=== PATIENT | male | born 1995 | race Caucasian/White ===

== ENCOUNTER 2020-04-08 14:25 | Inpatient (IN) | payer OTHER ==
--- NOTE | 2020-04-08 14:44 | PDOC ---
Rapid Medical Evaluation Chief Complaint: Substance Abuse Time Seen by Provider: 04/08/20 14:37 Medical Evaluation: Allergies Allergy/AdvReac Type Severity Reaction Status Date / Time No Known Allergies Allergy Verified 04/08/20 14:29 04/08/20 14:39 I have performed a brief in-person evaluation of this patient. The patient presents with a chief complaint of: h/o polysubstance abuse BIBA with complains of chest pains, sweats after smoking 3 bags of crack cocaine this AM and drinking 3 beers. pt report drinking lot Pertinent physical exam findings:. anxious, diaphoretic. heart rapid . lungs CTAB I have ordered the following: labs, IVF, EKG The patient will proceed to the ED for further evaluation. Discharge Disposition - Diagnosis Polysubstance abuse Chest pain Qualifiers: Chest pain type: unspecified Qualified Code(s): R07.9 - Chest pain, unspecified - Discharge Dispostion Condition at time of disposition: Stable - Referrals - Patient Instructions - Post Discharge Activity
--- NOTE | 2020-04-08 15:22 | PDOC ---
History of Present Illness - General Chief Complaint: Substance Abuse Stated Complaint: CHEST PAIN Time Seen by Provider: 04/08/20 14:37 History Source: Patient Exam Limitations: Language Barrier - History of Present Illness Initial Comments: HPI: This is a 23 y/o male with a PMH of uncontrolled HTN, alcoholism, and crack use who presented to the ED because of chest pain this morning. He reports that he was drinking last night and smoking crack (last use reported at 3 a.m.). He woke up this morning with three episodes of nausea and non-bloody, non-bilious vomiting. The patient then went for a walk and had exertional, non-radiating, chest pain along with shortness of breath and diaphoresis. The pain was not relieved by rest. He then drank three beers because he was "detoxing from alcohol," and called an ambulance due to the pain. The pain then became constant, non-radiating and pleuritic. Denies current SOB, abdominal pain, or nausea and vomiting. ROS: GENERAL/CONSTITUTIONAL: No fever. Yes chills and sweats. HEAD, EYES, EARS, NOSE AND THROAT: No change in vision. CARDIOVASCULAR: L sided pleuritic chest pain RESPIRATORY: No cough, SOB, wheezing. GASTROINTESTINAL: No nausea, vomiting, diarrhea or constipation. GENITOURINARY: No dysuria, frequency, or change in urination. NEUROLOGIC: Mild headache. No vertigo, loss of consciousness, or change in strength/sensation. PMH: HTN Meds: Denied Allergies: Denied PE: GENERAL: Awake, alert, and fully oriented. Diaphoretic. HEAD: No signs of trauma EYES: PERRL, EOMI ENT: Tongue fasciculations NECK: Normal ROM, no masses LUNGS: Breath sounds equal, clear to auscultation bilaterally. No wheezes, and no crackles HEART: Tachycardic, normal S1 and S2, no murmurs, rubs or gallops ABDOMEN: Soft, nontender, normoactive bowel sounds. No guarding, no rebound. No masses EXTREMITIES: Tremors in hands NEUROLOGICAL: Cranial nerves II through XII grossly intact. Normal speech. SKIN: Warm, diaphoretic MDM: This is a 23 y/o male with a significant substance use history presenting to the ED due to chest pain. The patient looked like he was detoxing during the physic al exam. He was diaphoretic, with tremors and tongue fasciculations. He was also complaining of chest pain after drinking and smoking crack. A decision was made to give him 1mg ativan which improved his symptoms. He was also given 50mg of librium. He will be admitted to tele/obs until he is medically stable and can go to [facility]. 04/08/20 23:55 Past History - Medical History Allergies/Adverse Reactions: Allergies Allergy/AdvReac Type Severity Reaction Status Date / Time No Known Allergies Allergy Verified 04/08/20 14:29 - Psycho-Social/Smoking History Smoking History: Never smoked Information on smoking cessation initiated: No - Substance Abuse Hx (Audit-C & DAST Scrn) How often the patient has a drink containing alcohol: 2-3 times / week Number of drinks the patient has on a typical day: 5 or 6 How often the patient has six or more drinks on one occasion: Monthly Score: In Men: 4 or > Positive; In Women: 3 or > Positive: 7 Screen Result (Pos requires Nsg. Audit-10AR): Positive In the last yr the pt used illegal drug/Rx for NonMed reason: Yes Score: Yes response is considered Positive: 1 Screen Result (Positive result requires Nsg. DAST-10): Positive *Physical Exam - Vital Signs Last Vital Signs Temp Pulse Resp BP Pulse Ox 98.3 F 124 H 20 150/83 97 04/08/20 14:37 04/08/20 14:37 04/08/20 14:37 04/08/20 14:37 04/08/20 14:37 Heart Score/ECG Review - History History: Moderately suspicious - Electrocardiogram EKG: Normal - Age Age: </= 45 - Risk Factors Risk Factors Heart Score: Yes Hx Hypertension Based on the list above the patient has:: 1-2 risk factors - Troponin Troponin: </= normal limit - Score Heart Score - Total: 2 - ECG Intrepretation Comment:: 04/08/20 17:33 Sinus tachycardia Vent rate 111, MN interval 154, QRS duration 96, QT/QTc 338/459 ED Treatment Course - LABORATORY CBC & Chemistry Diagram: 04/08/20 15:15 04/08/20 15:15 Discharge - Discharge Information Problems reviewed: Yes Clinical Impression/Diagnosis: Polysubstance abuse Chest pain Qualifiers: Chest pain type: unspecified Qualified Code(s): R07.9 - Chest pain, unspecified Alcohol withdrawal Qualifiers: Complication of substance-induced condition: with unspecified complication Qualified Code(s): F10.239 - Alcohol dependence with withdrawal, unspecified Condition: Stable - Admission Yes - Follow up/Referral - Patient Discharge Instructions - Post Discharge Activity
[2020-04-08 15:32] LABS: BASO % 0.7 % (0-2.0); HEMATOCRIT 42.1 % (35.4-49); HEMOGLOBIN 14.1 GM/dL (11.7-16.9); LYMPH % 13.4 % (8-40); MCH 31.2 pg (25.7-33.7); MCHC 33.5 g/dl (32.0-35.9); MEAN CELL VOLUME 92.9 fl (80-96); MEAN PLT VOLUME 8.3 fl (7.5-11.1); MONO % 6.3 % (3.8-10.2); NEUT % 79.6 % (42.8-82.8); PLATELET COUNT 355 K/MM3 (134-434); RBC 4.53 M/mm3 (4.00-5.60); RDW 15.6 % (11.9-15.9); WHITE BLOOD COUNT 6.7 K/mm3 (4.0-10.0)
[2020-04-08 15:37] LABS: INR 0.9 (0.83-1.09); PROTHROMBIN TIME (PATIENT) 10.6 SEC (9.7-13.0)
[2020-04-08 15:45] LABS: ALBUMIN 4.6 g/dl (3.4-5.0); ALK PHOS 131 U/L (45-117); ANION GAP 9 MMOL/L (8-16); BILIRUBIN,TOTAL 0.9 mg/dL (0.2-1); BLOOD UREA NITROGEN 10.4 mg/dL (7-18); CALCIUM 9.5 mg/dL (8.5-10.1); CHLORIDE 104 mmol/L (98-107); CO2 25 mmol/L (21-32); CREATININE 0.8 mg/dL (0.55-1.3); GLUCOSE,RANDOM 89 mg/dL (74-106); POTASSIUM 3.3 mmol/L (3.5-5.1); SGOT/AST 166 U/L (15-37); SGPT/ALT 302 U/L (13-61); SODIUM 138 mmol/L (136-145); TOT PROT 8.1 g/dl (6.4-8.2)
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
[2020-04-08] MEDS ORDERED: LORazepam 2 MG/ML SDV VIAL ONE (16:47)
[2020-04-08] MEDS ORDERED: chlordiazePOXIDE HCL 25 MG CAPSULE PO ONE (17:16)
[2020-04-08] MEDS ORDERED: chlordiazePOXIDE HCL 25 MG CAPSULE ONE (17:26)
[2020-04-08] MEDS ORDERED: POTASSIUM CHLORIDE TABS 20 MEQ TABLET.ER (FP) PO ONE ×2 (17:42→17:47)
--- NOTE | 2020-04-08 19:24 | PN ---
Teaching Attending Note Name of Resident: Chad Camarena ATTENDING PHYSICIAN STATEMENT I saw and evaluated the patient. I reviewed the resident's note and discussed the case with the resident. I agree with the resident's findings and plan as documented. SUBJECTIVE: Patient is a 23 year old man with a PMH of HTN (not on medication), Alcohol abus e, Crack abuse and Tobacco use who presents to the ER with complain of chest pain since earlier today. Patient disclosed that last night at around 3:00am he drank a lot of alcohol and did a variety of drugs which then prompted him to feel "sick" in the morning. Also had 3 episodes of NBNB vomiting, muscle spasms, shaking, and "swelling throughout my whole body". Patient then stated he drank 3 more beers in the morning before going on a walk at approximately 10:00am. During said walk, the patient said he began to feel chest pain and left sided tightness along with a headache, sweating, and SOB which resulted in him "becoming anxious" and calling an ambulance. Denies fever, chills, diarrhea or dysuria. No sick contacts or recent travels. Family history is unremarkable. OBJECTIVE: Alert Vital Signs Period Temp Pulse Resp BP Sys/Bailey Pulse Ox Last 24 Hr 98.3 F 98-124 20-27 120-150/56-95 97-100 HEENT: No Jaundice, eye redness or discharge, PERRLA, EOMI. Normocephalic, atraumatic. External ears are normal and hearing is grossly intact. No nasal discharge. Neck: Supple, nontender. No palpable adenopathy or thyromegaly. No JVD Chest: Good effort. Clear to auscultation and percussion. Heart: Regular. No S3, rub or murmur Abdomen: Not distended, soft, nontender and no HSM. No rebound or guarding. Normal bowel sounds. Ext: Peripheral pulses intact. No leg edema. Skin: Warm and dry. No petechiae, rash or ecchymosis. Neuro: Alert. Tremulous and restless; Oriented x3. CN 2-12 grossly intact. Sensation grossly intact in all four extremities and DTR are symmetric. Psych: Appropriate mood and affect. Good insight. Current Medications Generic Name Dose Route Start Last Admin Trade Name Freq PRN Reason Stop Dose Admin Folic Acid 1 mg 04/08/20 20:45 Folic Acid - PO DAILY [facility] Heparin Sodium (Porcine) 5,000 unit 04/08/20 22:00 Heparin - SQ TID [facility] Folic Acid 1 mg/ Thiamine HCl 1,000 mls @ 125 mls/hr 04/08/20 20:44 100 mg/ Multivitamins/Minerals IVPB 04/09/20 04:43 10 ml/ Sodium Chloride ONCE ONE Lorazepam 1 mg 04/10/20 05:00 Ativan - PO 04/10/20 23:01 0500,1100,1700,2300 ODELL Lorazepam 1 mg 04/08/20 20:43 Ativan - PO 04/10/20 23:59 Q4H PRN Symptoms of Withdrawal Lorazepam 2 mg 04/08/20 23:00 Ativan - PO 04/09/20 23:01 0500,1100,1700,2300 ODELL Lorazepam 0.5 mg 04/11/20 05:00 Ativan - PO 04/11/20 23:01 Q6H ODELL Lorazepam 0.5 mg 04/11/20 00:00 Ativan - PO 04/11/20 23:59 Q4H PRN Symptoms of Withdrawal Lorazepam 0.5 mg 04/12/20 05:00 Ativan - PO 04/12/20 05:01 ONCE ONE Thiamine HCl 100 mg 04/08/20 20:45 Vitamin B1 - PO DAILY [facility] Abnormal Lab Results 04/08/20 04/08/20 15:15 15:15 Potassium 3.3 L AST 166 H ALT 302 H Alkaline Phosphatase 131 H Creatine Kinase 2292 H CK-MB (CK-2) 5.4 H Salicylates < 1.7 L Alcohol, Quantitative 60.7 H ASSESSMENT AND PLAN: 1. Chest pain/Alcohol withdrawal syndrome/Rhabdomyolysis - He has risk factors for ACS. EKG shows sinus tachycardia at 111/minute and QTc [address]-T wave changes. Initial troponin is negative. Will admit to telemetry, trend troponin, get ECHO, fasting lipids and consult Cardiology. Hypokalemia likely partly due to alcohol associated renal wasting. Will check serum magnesium, give IV and PO KCL. Will continue IV NS after banana bag to treat rhabdomyolysis. CXR is pending. Alcohol/crack abuse - Monitor closely for drug withdrawal. Get hepatitis serology, upper abdomen sonogram, NH3 level and trend LFTs. Implement CIWA Ativan alcohol withdrawal protocol and do neurochecks. Implement seizure, fall and aspiration precautions. Treat with IV Banana bag, thiamine and folic acid. Monitor and replete electrolytes (Ca,Mg,K,P). Counseled patient about abstaining from illicit drugs/alcohol. Will consult mechanical service specialist and refer to drug/alcohol detox upon discharge. Viral testing for COVID-19 ordered and patient placed on airborne, droplet and contact isolation. 2. Tobacco Use Counseled on risks associated with tobacco use. We will provide patient all the necessary assistance to facilitate smoking cessation and prescribe Nicotine patch. 3. Hypertension Patient counseled on the injurious effects of uncontrolled hypertension. Nonpharmacologic measures to control hypertension like weight loss, salt restriction and exercise stressed. Importance of adherence to treatment regimen and attainment of normotension emphasized. Will treat with Lisinopril and HCTZ once alcohol withdrawal resolves. 4. DVT prophylaxis - Lovenox 40 mg SQ q 24 hours. 5. Advance directives - Full code
--- NOTE | 2020-04-08 20:40 | HP ---
CHIEF COMPLAINT: Chest Pain+Nausea/Vomiting PCP: HISTORY OF PRESENT ILLNESS: Patient is a 23 y/o M with a past medical history of untreated HTN and polysubstance abuse (Crack cocaine and Alcohol) who presented to [facility] due to sudden onset chest pain around 11 am this morning. Patient does endorse using crack cocaine as well as alcohol earlier today. Patient states he last used crack cocaine around 3 am this morning; patient smokes the cocaine. Patient also consumed 3 beers this am. Shortly after consuming the beer, patient went for a walk and began to develop chest pain as well as upper extremity muscle spasms. Patient also had three episodes of NBNB vomiting. Patient subsequently called 911. Patient denies any similar symptoms in the past. PMH as above Surgical history: Denies Social Hx- +Crack cocaine/Alcohol. Denies cigarette use. NKDA ER course was notable for: (1) Urine Tox + cocaine (2) Alcohol level 60 (3) AST/ALT/Alk Phos 166/302/131 respectively HOME MEDICATIONS: REVIEW OF SYSTEMS CONSTITUTIONAL: Absent: fever, chills, diaphoresis, generalized weakness, malaise, loss of appetite, weight change HEENT: Absent: rhinorrhea, nasal congestion, throat pain, throat swelling, difficulty swallowing, mouth swelling, ear pain, eye pain, visual changes CARDIOVASCULAR: Present: chest pain RESPIRATORY: Absent: cough, shortness of breath, dyspnea with exertion, orthopnea, wheezing, stridor, hemoptysis GASTROINTESTINAL: PRESENT: abdominal pain, nausea, vomiting GENITOURINARY: Absent: dysuria, frequency, urgency, hesitancy, hematuria, flank pain, genital pain MUSCULOSKELETAL: Absent: myalgia, arthralgia, joint swelling, back pain, neck pain SKIN: Absent: rash, itching, pallor HEMATOLOGIC/IMMUNOLOGIC: Absent: easy bleeding, easy bruising, lymphadenopathy, frequent infections ENDOCRINE: Absent: unexplained weight gain, unexplained weight loss, heat intolerance, cold intolerance NEUROLOGIC: Absent: headache, focal weakness or paresthesias, dizziness, unsteady gait, seizure, mental status changes, bladder or bowel incontinence PSYCHIATRIC: Absent: anxiety, depression, suicidal or homicidal ideation, hallucinations. PHYSICAL EXAMINATION Vital Signs - 24 hr 04/08/20 04/08/20 04/08/20 14:37 17:28 18:40 Temperature 98.3 F Pulse Rate 124 H Pulse Rate [ 98 H 103 H Left Radial] Respiratory 20 27 H 20 Rate Blood Pressure 150/83 Blood Pressure 120/56 L 121/95 [Right Arm] O2 Sat by Pulse 97 100 97 Oximetry (%) GENERAL: NAD HEAD: Normal with no signs of trauma. EYES: EOMI Sclera Clear EARS, NOSE, THROAT: MMM LUNGS: CTAB HEART: RRR ABDOMEN: Soft, nontender, not distended UPPER EXTREMITIES: Slight tremor bilaterally. Scar left dorsum forearm. LOWER EXTREMITIES: No CCE NEUROLOGICAL: Cranial nerves II-XII intact. Normal speech. PSYCHIATRIC: Cooperative. Good eye contact. Appropriate mood and affect. Laboratory Results - last 24 hr 04/08/20 04/08/20 04/08/20 15:15 15:15 15:15 WBC 6.7 RBC 4.53 Hgb 14.1 Hct 42.1 MCV 92.9 MCH 31.2 MCHC 33.5 RDW 15.6 Plt Count 355 MPV 8.3 Absolute Neuts (auto) 5.3 Neutrophils % 79.6 Lymphocytes % 13.4 Monocytes % 6.3 Eosinophils % 0.0 Basophils % 0.7 Nucleated RBC % 0 PT with INR INR PTT (Actin FS) Sodium 138 Potassium 3.3 L Chloride 104 Carbon Dioxide 25 Anion Gap 9 BUN 10.4 Creatinine 0.8 Est GFR (CKD-EPI)AfAm 143.90 Est GFR (CKD-EPI)NonAf 124.16 Random Glucose 89 Calcium 9.5 Total Bilirubin 0.9 AST 166 H ALT 302 H Alkaline Phosphatase 131 H Creatine Kinase 2292 H Creatine Kinase Index 0.2 CK-MB (CK-2) 5.4 H Troponin I < 0.02 Total Protein 8.1 Albumin 4.6 Salicylates < 1.7 L Acetaminophen <2.0 Alcohol, Quantitative 60.7 H 04/08/20 15:20 WBC RBC Hgb Hct MCV MCH MCHC RDW Plt Count MPV Absolute Neuts (auto) Neutrophils % Lymphocytes % Monocytes % Eosinophils % Basophils % Nucleated RBC % PT with INR 10.60 INR 0.90 PTT (Actin FS) 31.0 Sodium Potassium Chloride Carbon Dioxide Anion Gap BUN Creatinine Est GFR (CKD-EPI)AfAm Est GFR (CKD-EPI)NonAf Random Glucose Calcium Total Bilirubin AST ALT Alkaline Phosphatase Creatine Kinase Creatine Kinase Index CK-MB (CK-2) Troponin I Total Protein Albumin Salicylates Acetaminophen Alcohol, Quantitative ASSESSMENT/PLAN: Patient is a 23 y/o M with a past medical history of untreated HTN and polysubstance abuse (Crack cocaine and Alcohol) who presented to [facility] due to sudden onset chest pain around 11 am this morning. #Chest Pain. R/o ACS -1s Trop neg. EKG Sinus Tachycardia. QTc 459. No ST-T wave abnormalities -Trend trop -Echocardiogram -Cardio Consult -Repeat EKG #Rhabdomyolysis -CK 2292 -Patient receiving banana bag. Will continue -CK in am #Elevate Liver Chemistries likely 2/2 Polysubstance Abuse -Hepatitis serology -Upper abdomen sonogram #Alcohol withdrawal/Polysubstance abuse -CIWA 11 -Given Ativan 1 mg and Librium 50 mg in ED -Will place on Ativan detox protocol in light of transaminitis -Thiamine, Folate, Banana bag -Addiction medicine Consult. #Uncontrolled HTN -Will monitor. Consider addition of Norvasc. #FEN -Banana Bag -Monitor Electrolytes -Sodium Controlled Diet DVT ppx: -HepSQTID Dispo: -Med-Surg Visit type - Emergency Visit Emergency Visit: Yes ED Registration Date: 04/08/20 Care time: The patient presented to the Emergency Department on the above date and was hospitalized for further evaluation of their emergent condition. - New Patient This patient is new to me today: Yes Date on this admission: 04/09/20 - Critical Care Critical Care patient: No ATTENDING PHYSICIAN STATEMENT I saw and evaluated the patient. I reviewed the resident's note and discussed the case with the resident. I agree with the resident's findings and plan as documented. SUBJECTIVE: OBJECTIVE: ASSESSMENT AND PLAN:
[2020-04-08] MEDS ORDERED: LORazepam 1 MG TABLET PO PRN (20:43)
[2020-04-08] MEDS ORDERED: FOLIC ACID INJECTION - 1 MG, THIAMINE HCL 100 MG, MULTIVIT INJECTION ADULT 10 ML in SOD... IVPB ONE (20:44)
[2020-04-08] MEDS ORDERED: THIAMINE HCL 100 MG TABLET (FP) PO SCH (20:45)
[2020-04-08] MEDS ORDERED: LORazepam 0.5 MG TABLET ONE (21:07)
[2020-04-08] MEDS ORDERED: FOLIC ACID 1 MG TABLET (FP) ONE (21:08)
[2020-04-08] MEDS ORDERED: HEPARIN NA (PORCINE) 5,000 UNITS/ML 1ML VIAL ONE (21:08)
[2020-04-08] MEDS ORDERED: THIAMINE HCL 100 MG TABLET (FP) ONE (21:08)
[2020-04-08] MEDS: HEPARIN NA (PORCINE) 5,000 UNITS/ML 1ML VIAL SQ SCH (22:03)
[2020-04-08] MEDS: FOLIC ACID 1 MG TABLET (FP) PO SCH (22:03)
[2020-04-08] MEDS: LORazepam 0.5 MG TABLET PO SCH (22:03)
[2020-04-08 22:18] LABS: PH,URINE 5.5 (5.0-8.0); URINE APPEARANCE CLEAR; URINE BILIRUBIN NEGATIVE (NEGATIVE); URINE COLOR YELLOW; URINE GLUCOSE (UA) NEGATIVE (NEGATIVE); URINE KETONE 2+ (NEGATIVE); URINE LEUK ESTERASE NEGATIVE (NEGATIVE); URINE NITRITE NEGATIVE (NEGATIVE); URINE PROTEIN NEGATIVE (NEGATIVE)
[2020-04-08 22:26] LABS: METHADONE, UR NEGATIVE ng/ml (CUTOFF=300); URINE AMPHETAMINES NEGATIVE ng/ml (CUTOFF=500); URINE BARBITURATES NEGATIVE ng/ml (CUTOFF=200); URINE BENZODIAZEPINES NEGATIVE ng/ml (CUTOFF=200)
[2020-04-08 22:27] LABS: OPIATES, URI NEGATIVE ng/ml (CUTOFF=300); PHENCYCLIDINE,URINE NEGATIVE ng/ml (CUTOFF=25)
[2020-04-08 22:36] LABS: COCAINE, UR POSITIVE ng/ml (CUTOFF=300)
[2020-04-09] MEDS ORDERED: HEPARIN NA (PORCINE) 5,000 UNITS/ML 1ML VIAL ONE ×2 (05:16→14:33)
[2020-04-09] MEDS ORDERED: LORazepam 0.5 MG TABLET ONE ×4 (05:17→17:59)
[2020-04-09] MEDS: LORazepam 0.5 MG TABLET PO SCH ×3 (05:33→18:18)
[2020-04-09] MEDS: HEPARIN NA (PORCINE) 5,000 UNITS/ML 1ML VIAL SQ SCH ×2 (05:33→14:35)
[2020-04-09 07:49] LABS: HEMATOCRIT 40.1 % (35.4-49); MCH 30.8 pg (25.7-33.7); MCHC 32.4 g/dl (32.0-35.9); MEAN CELL VOLUME 94.8 fl (80-96); MEAN PLT VOLUME 8.9 fl (7.5-11.1); PLATELET COUNT 296 K/MM3 (134-434); RBC 4.23 M/mm3 (4.00-5.60); RDW 15.7 % (11.9-15.9); WHITE BLOOD COUNT 4.3 K/mm3 (4.0-10.0)
[2020-04-09 08:03] LABS: INR 0.94 (0.83-1.09); PROTHROMBIN TIME (PATIENT) 11.1 SEC (9.7-13.0)
--- NOTE | 2020-04-09 08:04 | PN ---
Teaching Attending Note Name of Resident: Duane Rizo ATTENDING PHYSICIAN STATEMENT I saw and evaluated the patient. I reviewed the resident's note and discussed the case with the resident. I agree with the resident's findings and plan as documented. SUBJECTIVE: Patient is experiencing some dizziness. otherwise has no new complains. OBJECTIVE: Vital Signs Temperature 98.5 F 04/09/20 06:01 Pulse Rate 73 04/09/20 06:01 Respiratory Rate 20 04/09/20 07:55 Blood Pressure 117/80 04/09/20 06:01 O2 Sat by Pulse Oximetry (%) 100 04/09/20 07:55 Initial Vital Signs Temp Pulse Resp BP Pulse Ox 98.3 F 124 H 20 150/83 97 04/08/20 14:37 04/08/20 14:37 04/08/20 14:37 04/08/20 14:37 04/08/20 14:37 PE: per resident's note CBCD WBC 4.3 K/mm3 (4.0-10.0) 04/09/20 06:05 RBC 4.23 M/mm3 (4.00-5.60) 04/09/20 06:05 Hgb 13.0 GM/dL (11.7-16.9) 04/09/20 06:05 Hct 40.1 % (35.4-49) 04/09/20 06:05 MCV 94.8 fl (80-96) 04/09/20 06:05 MCHC 32.4 g/dl (32.0-35.9) 04/09/20 06:05 RDW 15.7 % (11.9-15.9) 04/09/20 06:05 Plt Count 296 K/MM3 (134-434) 04/09/20 06:05 MPV 8.9 fl (7.5-11.1) 04/09/20 06:05 CMP Sodium 138 mmol/L (136-145) 04/08/20 15:15 Potassium 3.3 mmol/L (3.5-5.1) L 04/08/20 15:15 Chloride 104 mmol/L (98-107) 04/08/20 15:15 Carbon Dioxide 25 mmol/L (21-32) 04/08/20 15:15 Anion Gap 9 MMOL/L (8-16) 04/08/20 15:15 BUN 10.4 mg/dL (7-18) 04/08/20 15:15 Creatinine 0.8 mg/dL (0.55-1.3) 04/08/20 15:15 Random Glucose 89 mg/dL (74-106) 04/08/20 15:15 Calcium 9.5 mg/dL (8.5-10.1) 04/08/20 15:15 Total Bilirubin 0.9 mg/dL (0.2-1) 04/08/20 15:15 AST 166 U/L (15-37) H 04/08/20 15:15 ALT 302 U/L (13-61) H 04/08/20 15:15 Alkaline Phosphatase 131 U/L (45-117) H 04/08/20 15:15 Total Protein 8.1 g/dl (6.4-8.2) 04/08/20 15:15 Albumin 4.6 g/dl (3.4-5.0) 04/08/20 15:15 CARDIAC ENZYMES Creatine Kinase 2292 U/L (26-308) H 04/08/20 15:15 Troponin I < 0.02 ng/ml (0.00-0.05) 04/08/20 22:16 Current Medications Generic Name Dose Route Start Last Admin Trade Name Freq PRN Reason Stop Dose Admin Folic Acid 1 mg 04/08/20 20:45 04/08/20 22:03 Folic Acid - PO 1 mg DAILY ODELL Administration Heparin Sodium (Porcine) 5,000 unit 04/08/20 22:00 04/09/20 05:33 Heparin - SQ 5,000 unit TID ODELL Administration Lorazepam 1 mg 04/10/20 05:00 Ativan - PO 04/10/20 23:01 0500,1100,1700,2300 ODELL Lorazepam 1 mg 04/08/20 20:43 Ativan - PO 04/10/20 23:59 Q4H PRN Symptoms of Withdrawal Lorazepam 2 mg 04/08/20 23:00 04/09/20 05:33 Ativan - PO 04/09/20 23:01 2 mg 0500,1100,1700,2300 ODELL Administration Lorazepam 0.5 mg 04/11/20 05:00 Ativan - PO 04/11/20 23:01 Q6H ODELL Lorazepam 0.5 mg 04/11/20 00:00 Ativan - PO 04/11/20 23:59 Q4H PRN Symptoms of Withdrawal Lorazepam 0.5 mg 04/12/20 05:00 Ativan - PO 04/12/20 05:01 ONCE ONE Thiamine HCl 100 mg 04/08/20 20:45 04/08/20 22:03 Vitamin B1 - PO 100 mg DAILY ODELL Administration Laboratory Tests 04/08/20 04/08/20 04/08/20 15:15 19:05 22:07 Potassium 3.3 L AST 166 H ALT 302 H Alkaline Phosphatase 131 H Creatine Kinase 2292 H Troponin I < 0.02 Cocaine Screen Positive A* Alcohol, Quantitative 60.7 H COVID-19 (TAMIKA) Pending Hep A IgM Ab Confirm Hep Bs Antigen Hep B Core IgM Ab Hepatitis C Ab (EIA) 04/08/20 04/08/20 22:16 22:16 Potassium AST ALT Alkaline Phosphatase Creatine Kinase Troponin I < 0.02 Cocaine Screen Alcohol, Quantitative COVID-19 (T[facility]IKA) Hep A IgM Ab Confirm Pending Hep Bs Antigen Pending Hep B Core IgM Ab Pending Hepatitis C Ab (EIA) Pending CXR: Cardiomegaly EKG: Sinus Tachycardia. QTc 459. No ST-T wave abnormalities ASSESSMENT AND PLAN: Patient is a 23 y/o M with a past medical history of untreated HTN and polysubstance abuse (Crack cocaine and Alcohol) who presented to [facility] due to sudden onset chest pain around 11 am this morning. #Acute Chest : r/o ACS , chest pain most likely due to cocaine induced with cardiomegaly will get echo in am , 2 sets of trops are elevated. cardio consulted. #Acute Rhabdomyolysis due to Cocaine induced with CK 2292, will trend , will continue IVF #Alcohol withdrawal/Polysubstance abuse:on ativan protocol with alcohol level of 60, s/p banana bag, will continue with thiamine 200mg iv bid detox consult #Acute tranaminitis due to alcohol dependency: Hepatitis serology, abdominal US #HTN HTN; due to cocaine on Norvasc DVT ppx: HepSQ; h/h stable
[2020-04-09 08:06] LABS: ACTIVATED PTT 31.4 SECONDS (25.2-36.5)
[2020-04-09 08:08] LABS: ALBUMIN 3.9 g/dl (3.4-5.0); BILIRUBIN,TOTAL 1.2 mg/dL (0.2-1); BLOOD UREA NITROGEN 14.2 mg/dL (7-18); CALCIUM 9.2 mg/dL (8.5-10.1); CREATININE 0.7 mg/dL (0.55-1.3); MAGNESIUM 2.4 mg/dL (1.8-2.4); PHOSPHOROUS 4.2 mg/dL (2.5-4.9); POTASSIUM 4.2 mmol/L (3.5-5.1)
[2020-04-09] MEDS ORDERED: LACTATED RINGERS SOLUTION 1,000 ML/1,000 ML INFUS.BAG IV SCH ×2 (08:30→23:46)
[2020-04-09] MEDS ORDERED: THIAMINE HCL 200 MG/2 ML VIAL ONE ×2 (10:04→22:20)
[2020-04-09] MEDS ORDERED: FOLIC ACID 1 MG TABLET (FP) ONE (10:04)
--- NOTE | 2020-04-09 10:05 | CON.CARD ---
Consult Consult Specialty:: Cardiology Referred by:: Hospitalist Reason for Consultation:: Cardiac evaluation - History of Present Illness Chief Complaint: Chest pain History of Present Illness: Patient is a 23 year old male with underlying history of HTN (not treated) who presents with poly-substance abuse with ETOH and crack/cocaine. He complains of mid sternal chest pain. He states he has been a heavy drinker of alcohol (beer, vodka) and also has been using Crack/Cocaine. He denies shortness of breath or palpitations. He denies fever or chills. He denies paroxysmal nocturnal dyspnea or orthopnea. He denies headache or lightheadedness. He denies nausea, vomiting, diarrhea or abdominal pain. He has not been to Detox. - History Source History Provided By: Patient, Medical Record Limitations to Obtaining History: Language Barrier - Past Medical History Cardio/Vascular: Yes: HTN - Past Surgical History Past Surgical History: Yes: None - Alcohol/Substance Use Hx Alcohol Use: Yes History of Substance Use: reports: Cocaine - Smoking History Smoking history: Never smoked Home Medications - Allergies Allergies/Adverse Reactions: Allergies Allergy/AdvReac Type Severity Reaction Status Date / Time No Known Allergies Allergy Verified 04/08/20 14:29 Family Medical History Family History: Denies Review of Systems - Review of Systems Constitutional: denies: Chills, Fever Cardiovascular: reports: Chest Pain. denies: Palpitations, Shortness of Breath Respiratory: denies: Cough, Hemoptysis, Orthopnea, PND, SOB, SOB on Exertion, Wheezing Gastrointestinal: denies: Abdominal Pain, Constipation, Diarrhea, Melena, Naus ea, Rectal Bleeding, Vomiting Musculoskeletal: denies: Back Pain, Joint Pain Neurological: denies: Dizziness, Headache, Seizure, Syncope Vital Signs: Vital Signs Temperature 98.5 F 04/09/20 06:01 Pulse Rate 73 04/09/20 06:01 Respiratory Rate 20 04/09/20 07:55 Blood Pressure 117/80 04/09/20 06:01 O2 Sat by Pulse Oximetry (%) 100 04/09/20 07:55 Eyes: Yes: PERRL HENT: Yes: Atraumatic Neck: Yes: Supple Respiratory: Yes: CTA Bilaterally Gastrointestinal: Yes: Normal Bowel Sounds, Soft. No: Tenderness Cardiovascular: Yes: Regular Rate and Rhythm JVD: No Carotid Bruit: No PMI: Non-Displaced Heart Sounds: Yes: S1, S2. No: Gallop Murmur: No: Systolic Murmur Edema: No - Other Data Labs, Other Data: CBC, BMP 04/09/20 06:05 04/09/20 06:05 INR, PTT INR 0.94 (0.83-1.09) 04/09/20 06:05 Troponin, BNP 04/08/20 04/08/20 15:15 22:16 Troponin I < 0.02 < 0.02 Laboratory Results - last 24 hr 04/08/20 04/08/20 04/08/20 15:15 15:15 15:15 WBC 6.7 RBC 4.53 Hgb 14.1 Hct 42.1 MCV 92.9 MCH 31.2 MCHC 33.5 RDW 15.6 Plt Count 355 MPV 8.3 Absolute Neuts (auto) 5.3 Neutrophils % 79.6 Lymphocytes % 13.4 Monocytes % 6.3 Eosinophils % 0.0 Basophils % 0.7 Nucleated RBC % 0 PT with INR INR PTT (Actin FS) Sodium 138 Potassium 3.3 L Chloride 104 Carbon Dioxide 25 Anion Gap 9 BUN 10.4 Creatinine 0.8 Est GFR (CKD-EPI)AfAm 143.90 Est GFR (CKD-EPI)NonAf 124.16 Random Glucose 89 Calcium 9.5 Phosphorus Magnesium Total Bilirubin 0.9 AST 166 H ALT 302 H Alkaline Phosphatase 131 H Creatine Kinase 2292 H Creatine Kinase Index 0.2 CK-MB (CK-2) 5.4 H Troponin I < 0.02 Total Protein 8.1 Albumin 4.6 Urine Color Urine Appearance Urine pH Ur Specific [place] Urine Protein Urine Glucose (UA) Urine Ketones Urine Blood Urine Nitrite Urine Bilirubin Urine Urobilinogen Ur Leukocyte Esterase Salicylates < 1.7 L Opiates Screen Methadone Screen Acetaminophen <2.0 Barbiturate Screen Phencyclidine Screen Ur Amphetamines Screen MDMA (Ecstasy) Screen Benzodiazepines Screen Cocaine Screen U Marijuana (THC) Screen Alcohol, Quantitative 60.7 H 04/08/20 04/08/20 04/08/20 15:20 22:07 22:07 WBC RBC Hgb Hct MCV MCH MCHC RDW Plt Count MPV Absolute Neuts (auto) Neutrophils % Lymphocytes % Monocytes % Eosinophils % Basophils % Nucleated RBC % PT with INR 10.60 INR 0.90 PTT (Actin FS) 31.0 Sodium Potassium Chloride Carbon Dioxide Anion Gap BUN Creatinine Est GFR (CKD-EPI)AfAm Est GFR (CKD-EPI)NonAf Random Glucose Calcium Phosphorus Magnesium Total Bilirubin AST ALT Alkaline Phosphatase Creatine Kinase Creatine Kinase Index CK-MB (CK-2) Troponin I Total Protein Albumin Urine Color Yellow Urine Appearance Clear Urine pH 5.5 Ur Specific [place] 1.026 Urine Protein Negative Urine Glucose (UA) Negative Urine Ketones 2+ H Urine Blood Negative Urine Nitrite Negative Urine Bilirubin Negative Urine Urobilinogen 1.0 Ur Leukocyte Esterase Negative Salicylates Opiates Screen Negative Methadone Screen Negative Acetaminophen Barbiturate Screen Negative Phencyclidine Screen Negative Ur Amphetamines Screen Negative MDMA (Ecstasy) Screen Negative Benzodiazepines Screen Negative Cocaine Screen Positive A* U Marijuana (THC) Screen Negative Alcohol, Quantitative 04/08/20 04/09/20 04/09/20 22:16 06:05 06:05 WBC 4.3 RBC 4.23 Hgb 13.0 Hct 40.1 MCV 94.8 MCH 30.8 MCHC 32.4 RDW 15.7 Plt Count 296 MPV 8.9 Absolute Neuts (auto) Neutrophils % Lymphocytes % Monocytes % Eosinophils % Basophils % Nucleated RBC % PT with INR 11.10 INR 0.94 PTT (Actin FS) 31.4 Sodium Potassium Chloride Carbon Dioxide Anion Gap BUN Creatinine Est GFR (CKD-EPI)AfAm Est GFR (CKD-EPI)NonAf Random Glucose Calcium Phosphorus Magnesium Total Bilirubin AST ALT Alkaline Phosphatase Creatine Kinase Creatine Kinase Index CK-MB (CK-2) Troponin I < 0.02 Total Protein Albumin Urine Color Urine Appearance Urine pH Ur Specific [place] Urine Protein Urine Glucose (UA) Urine Ketones Urine Blood Urine Nitrite Urine Bilirubin Urine Urobilinogen Ur Leukocyte Esterase Salicylates Opiates Screen Methadone Screen Acetaminophen Barbiturate Screen Phencyclidine Screen Ur Amphetamines Screen MDMA (Ecstasy) Screen Benzodiazepines Screen Cocaine Screen U Marijuana (THC) Screen Alcohol, Quantitative 04/09/20 06:05 WBC RBC Hgb Hct MCV MCH MCHC RDW Plt Count MPV Absolute Neuts (auto) Neutrophils % Lymphocytes % Monocytes % Eosinophils % Basophils % Nucleated RBC % PT with INR INR PTT (Actin FS) Sodium 142 Potassium 4.2 Chloride 105 Carbon Dioxide 24 Anion Gap 12 BUN 14.2 Creatinine 0.7 Est GFR (CKD-EPI)AfAm 152.02 Est GFR (CKD-EPI)NonAf 131.16 Random Glucose 79 Calcium 9.2 Phosphorus 4.2 Magnesium 2.4 Total Bilirubin 1.2 H AST 105 H ALT 227 H Alkaline Phosphatase 105 Creatine Kinase Creatine Kinase Index CK-MB (CK-2) Troponin I Total Protein 7.0 Albumin 3.9 Urine Color Urine Appearance Urine pH Ur Specific [place] Urine Protein Urine Glucose (UA) Urine Ketones Urine Blood Urine Nitrite Urine Bilirubin Urine Urobilinogen Ur Leukocyte Esterase Salicylates Opiates Screen Methadone Screen Acetaminophen Barbiturate Screen Phencyclidine Screen Ur Amphetamines Screen MDMA (Ecstasy) Screen Benzodiazepines Screen Cocaine Screen U Marijuana (THC) Screen Alcohol, Quantitative To be followed Imaging - Results Chest X-ray: Report Reviewed (Atelactasis) EKG: Pending Problem List - Problems (1) Alcohol withdrawal Code(s): F10.239 - ALCOHOL DEPENDENCE WITH WITHDRAWAL, UNSPECIFIED Qualifiers: Complication of substance-induced condition: with unspecified complication Qualified Code(s): F10.239 - Alcohol dependence with withdrawal, unspecified (2) Chest pain Code(s): R07.9 - CHEST PAIN, UNSPECIFIED Qualifiers: Chest pain type: unspecified Qualified Code(s): R07.9 - Chest pain, unspecified (3) Polysubstance abuse Code(s): F19.10 - OTHER PSYCHOACTIVE SUBSTANCE ABUSE, UNCOMPLICATED Assessment/Plan 1. ETOH intoxication and withdrawl 2. Abnormal LFT due to #1 3. Chest pain syndrome, atypical PLAN: 1. Librium or Ativan 2. Avoid beta eleonora 3. Detox 4. No need for further cardiac therapy 5. Echocardiography to assess LV/RV and valvular function Jeffery Albright MD
[2020-04-09] MEDS: FOLIC ACID 1 MG TABLET (FP) PO SCH (10:17)
[2020-04-09] MEDS: THIAMINE HCL 200 MG/2 ML VIAL IVPB SCH ×2 (10:17→22:31)
--- NOTE | 2020-04-09 14:46 | PN ---
Physical Exam: SUBJECTIVE: Patient seen and examined NAEON. Endorses mild MURILLO, mild anxiety. Says bright lights cause dots. Chest pressure has resolved. Denies h/o seizures. Mostly [place]ican-speaking OBJECTIVE: Vital Signs Period Temp Pulse Resp BP Sys/Bailye Pulse Ox Last 24 Hr 98.3 F-99.2 F 73-124 16-27 117-150/56-95 97-100 GENERAL: Mildly anxious appearing. NAD. HEAD: NC/AT. Leonard-appearing face EYES: sclera anicteric, conjunctiva w/o pallor. ENT: oropharynx clear without exudates, moist mucous membranes. NECK: Trachea midline, full range of motion, supple. LUNGS: Breath sounds equal, clear to auscultation bilaterally, no wheezes, no crackles, no accessory muscle use. Breathing comfortably on RA HEART: Regular rate and rhythm, S1, S2 without murmur, rub or gallop. ABDOMEN: Soft, nontender, nondistended, no guarding, no rebound. EXTREMITIES: BLE warm, well-perfused, no edema. NEUROLOGICAL: Normal speech. Tremulous oustretched hands CIWA 11 Laboratory Results - last 24 hr 04/08/20 04/08/20 04/08/20 15:15 15:15 15:15 WBC 6.7 RBC 4.53 Hgb 14.1 Hct 42.1 MCV 92.9 MCH 31.2 MCHC 33.5 RDW 15.6 Plt Count 355 MPV 8.3 Absolute Neuts (auto) 5.3 Neutrophils % 79.6 Lymphocytes % 13.4 Monocytes % 6.3 Eosinophils % 0.0 Basophils % 0.7 Nucleated RBC % 0 PT with INR INR PTT (Actin FS) Sodium 138 Potassium 3.3 L Chloride 104 Carbon Dioxide 25 Anion Gap 9 BUN 10.4 Creatinine 0.8 Est GFR (CKD-EPI)AfAm 143.90 Est GFR (CKD-EPI)NonAf 124.16 Random Glucose 89 Calcium 9.5 Phosphorus Magnesium Total Bilirubin 0.9 AST 166 H ALT 302 H Alkaline Phosphatase 131 H Creatine Kinase 2292 H Creatine Kinase Index 0.2 CK-MB (CK-2) 5.4 H Troponin I < 0.02 Total Protein 8.1 Albumin 4.6 Urine Color Urine Appearance Urine pH Ur Specific [place] Urine Protein Urine Glucose (UA) Urine Ketones Urine Blood Urine Nitrite Urine Bilirubin Urine Urobilinogen Ur Leukocyte Esterase Salicylates < 1.7 L Opiates Screen Methadone Screen Acetaminophen <2.0 Barbiturate Screen Phencyclidine Screen Ur Amphetamines Screen MDMA (Ecstasy) Screen Benzodiazepines Screen Cocaine Screen U Marijuana (THC) Screen Alcohol, Quantitative 60.7 H 04/08/20 04/08/20 04/08/20 15:20 22:07 22:07 WBC RBC Hgb Hct MCV MCH MCHC RDW Plt Count MPV Absolute Neuts (auto) Neutrophils % Lymphocytes % Monocytes % Eosinophils % Basophils % Nucleated RBC % PT with INR 10.60 INR 0.90 PTT (Actin FS) 31.0 Sodium Potassium Chloride Carbon Dioxide Anion Gap BUN Creatinine Est GFR (CKD-EPI)AfAm Est GFR (CKD-EPI)NonAf Random Glucose Calcium Phosphorus Magnesium Total Bilirubin AST ALT Alkaline Phosphatase Creatine Kinase Creatine Kinase Index CK-MB (CK-2) Troponin I Total Protein Albumin Urine Color Yellow Urine Appearance Clear Urine pH 5.5 Ur Specific [place] 1.026 Urine Protein Negative Urine Glucose (UA) Negative Urine Ketones 2+ H Urine Blood Negative Urine Nitrite Negative Urine Bilirubin Negative Urine Urobilinogen 1.0 Ur Leukocyte Esterase Negative Salicylates Opiates Screen Negative Methadone Screen Negative Acetaminophen Barbiturate Screen Negative Phencyclidine Screen Negative Ur Amphetamines Screen Negative MDMA (Ecstasy) Screen Negative Benzodiazepines Screen Negative Cocaine Screen Positive A* U Marijuana (THC) Screen Negative Alcohol, Quantitative 04/08/20 04/09/20 04/09/20 22:16 06:05 06:05 WBC 4.3 RBC 4.23 Hgb 13.0 Hct 40.1 MCV 94.8 MCH 30.8 MCHC 32.4 RDW 15.7 Plt Count 296 MPV 8.9 Absolute Neuts (auto) Neutrophils % Lymphocytes % Monocytes % Eosinophils % Basophils % Nucleated RBC % PT with INR 11.10 INR 0.94 PTT (Actin FS) 31.4 Sodium Potassium Chloride Carbon Dioxide Anion Gap BUN Creatinine Est GFR (CKD-EPI)AfAm Est GFR (CKD-EPI)NonAf Random Glucose Calcium Phosphorus Magnesium Total Bilirubin AST ALT Alkaline Phosphatase Creatine Kinase Creatine Kinase Index CK-MB (CK-2) Troponin I < 0.02 Total Protein Albumin Urine Color Urine Appearance Urine pH Ur Specific [place] Urine Protein Urine Glucose (UA) Urine Ketones Urine Blood Urine Nitrite Urine Bilirubin Urine Urobilinogen Ur Leukocyte Esterase Salicylates Opiates Screen Methadone Screen Acetaminophen Barbiturate Screen Phencyclidine Screen Ur Amphetamines Screen MDMA (Ecstasy) Screen Benzodiazepines Screen Cocaine Screen U Marijuana (THC) Screen Alcohol, Quantitative 04/09/20 06:05 WBC RBC Hgb Hct MCV MCH MCHC RDW Plt Count MPV Absolute Neuts (auto) Neutrophils % Lymphocytes % Monocytes % Eosinophils % Basophils % Nucleated RBC % PT with INR INR PTT (Actin FS) Sodium 142 Potassium 4.2 Chloride 105 Carbon Dioxide 24 Anion Gap 12 BUN 14.2 Creatinine 0.7 Est GFR (CKD-EPI)AfAm 152.02 Est GFR (CKD-EPI)NonAf 131.16 Random Glucose 79 Calcium 9.2 Phosphorus 4.2 Magnesium 2.4 Total Bilirubin 1.2 H AST 105 H ALT 227 H Alkaline Phosphatase 105 Creatine Kinase Creatine Kinase Index CK-MB (CK-2) Troponin I Total Protein 7.0 Albumin 3.9 Urine Color Urine Appearance Urine pH Ur Specific [place] Urine Protein Urine Glucose (UA) Urine Ketones Urine Blood Urine Nitrite Urine Bilirubin Urine Urobilinogen Ur Leukocyte Esterase Salicylates Opiates Screen Methadone Screen Acetaminophen Barbiturate Screen Phencyclidine Screen Ur Amphetamines Screen MDMA (Ecstasy) Screen Benzodiazepines Screen Cocaine Screen U Marijuana (THC) Screen Alcohol, Quantitative Active Medications Generic Name Dose Route Start Last Admin Trade Name Freq PRN Reason Stop Dose Admin Folic Acid 1 mg 04/08/20 20:45 04/09/20 10:17 Folic Acid - PO 1 mg DAILY ODELL Administration Heparin Sodium (Porcine) 5,000 unit 04/08/20 22:00 04/09/20 05:33 Heparin - SQ 5,000 unit TID ODELL Administration Lactated Ringer's 1,000 ml in 1,000 mls @ 83 mls/hr 04/09/20 08:30 04/09/20 09:10 Lactated Ringers Solution IV 04/10/20 20:33 83 mls/hr ASDIR ODELL Administration Lorazepam 1 mg 04/10/20 05:00 Ativan - PO 04/10/20 23:01 0500,1100,1700,2300 ODELL Lorazepam 1 mg 04/08/20 20:43 04/09/20 09:20 Ativan - PO 04/10/20 23:59 1 mg Q4H PRN Administration Symptoms of Withdrawal Lorazepam 2 mg 04/08/20 23:00 04/09/20 11:59 Ativan - PO 04/09/20 23:01 2 mg 0500,1100,1700,2300 ODELL Administration Lorazepam 0.5 mg 04/11/20 05:00 Ativan - PO 04/11/20 23:01 Q6H ODELL Lorazepam 0.5 mg 04/11/20 00:00 Ativan - PO 04/11/20 23:59 Q4H PRN Symptoms of Withdrawal Lorazepam 0.5 mg 04/12/20 05:00 Ativan - PO 04/12/20 05:01 ONCE ONE Thiamine HCl 200 mg 04/09/20 10:00 04/09/20 10:17 Vitamin B1 Injection - IVPB 04/11/20 09:59 200 mg BID ODELL Administration ASSESSMENT/PLAN: 23M w/ pmh of polysubstance abuse(Crack cocaine and Alcohol) who presented to [facility] due to nausea vomiting w/a chest pain for several hours after walking for several hours. Admitted for ACS r/o and EtOH withdrawl. CP resolved. NV resolved. #Chest Pain --unlikely ACS, possibly 2/2 EtOH gastritis > EKG Sinus Tachycardia. QTc 459. No ST-T wave abnormalities > troponin neg x2 > Echocardiogram --pending - Cardio Consult(Jeffery Albright): --avoid BB --no need for further cardiac tx --fu Echo for valvular disease #Rhabdomyolysis --possibly 2/2 prolonged walking vs EtOH intoxication > CK 2292 > EtOH(serum) 60.7 - IVF - fu CK on 04/10/20 #transmaminitis --likely 2/2 Polysubstance Abuse > AST/ALT 166/302; Tbil 0.9 > hepatitis panel --pending > US RUQ: fatty liver vs hepatocellular disease. Borderline GB wall thickening(maybe d/t partial distension), no stones, no pericholecystic free fluid #Alcohol withdrawal/Polysubstance abuse > CIWA 11(MURILLO, anxiety, bothered by bright lights, hand tremors) - ED: sp Ativan 1 mg and Librium 50 - Ativan protocol - Thiamine(IVBP), Folate(PO), mIVF - Addiction medicine Consult: --recs pending #?HTN --pt denies. Currently, controlled w/o medications -Will monitor. -Consider addition of Norvasc. #FEN - sodium-controlled diet - LR @83 DVT ppx: - SQH Dispo: -Med-Surg Visit type - Emergency Visit Emergency Visit: No - New Patient This patient is new to me today: Yes Date on this admission: 04/09/20 - Critical Care Critical Care patient: No ATTENDING PHYSICIAN STATEMENT I saw and evaluated the patient. I reviewed the resident's note and discussed the case with the resident. I agree with the resident's findings and plan as documented. SUBJECTIVE: OBJECTIVE: ASSESSMENT AND PLAN:
[2020-04-09] MEDS ORDERED: LORazepam 1 MG TABLET PO PRN (23:46)
[2020-04-10] MEDS: LORazepam 0.5 MG TABLET PO SCH
[2020-04-10] MEDS: HEPARIN NA (PORCINE) 5,000 UNITS/ML 1ML VIAL SQ SCH ×4 (00:04→22:40)
[2020-04-10] MEDS ORDERED: PNEUMOC 13-VAL CONJ-DIP CRM/PF 0.5 ML DISP.SYRIN IM ONE (01:49)
[2020-04-10] MEDS ORDERED: LORazepam 1 MG TABLET PO SCH (05:00)
[2020-04-10] MEDS: LORazepam 1 MG TABLET PO SCH ×4 (05:38→22:39)
--- NOTE | 2020-04-10 07:39 | PN ---
Progress Note, Physician History of Present Illness: Patient is a 23 year old male with underlying history of HTN (not treated) who presents with poly-substance abuse with ETOH and crack/cocaine. He complains of mid sternal chest pain. He states he has been a heavy drinker of alcohol (beer, vodka) and also has been using Crack/Cocaine. He denies shortness of breath or palpitations. He denies fever or chills. He denies paroxysmal nocturnal dyspnea or orthopnea. He denies headache or lightheadedness. He denies nausea, vomiting, diarrhea or abdominal pain. He has not been to Detox. - Current Medication List Current Medications: Active Medications Folic Acid (Folic Acid -) 1 mg PO DAILY [facility] Heparin Sodium (Porcine) (Heparin -) 5,000 unit SQ TID [facility] Last Admin: 04/10/20 05:38 Dose: 5,000 unit Documented by: Lactated Ringer's (Lactated Ringers Solution) 1,000 ml in 1,000 mls @ 83 mls/hr IV ASDIR [facility] Stop: 04/10/20 20:33 Last Admin: 04/10/20 00:30 Dose: 83 mls/hr Documented by: Lorazepam (Ativan -) 0.5 mg PO ONCE ONE Stop: 04/12/20 05:01 Lorazepam (Ativan -) 1 mg PO Q4H PRN PRN Reason: Symptoms of Withdrawal Stop: 04/10/20 23:59 Lorazepam (Ativan -) 0.5 mg PO Q4H PRN PRN Reason: Symptoms of Withdrawal Stop: 04/11/20 23:59 Lorazepam (Ativan -) 1 mg PO 0500,1100,1700,2300 [facility] Stop: 04/10/20 23:01 Last Admin: 04/10/20 05:38 Dose: 1 mg Documented by: Lorazepam (Ativan -) 0.5 mg PO Q6H [facility] Stop: 04/11/20 23:01 Pneumococcal 13-Valent Conj Vacc (Prevnar 13 Syringe -) 0.5 ml IM .ONCE ONE Stop: 04/10/20 01:50 Thiamine HCl (Vitamin B1 Injection -) 200 mg IVPB BID [facility] Stop: 04/11/20 09:59 - Objective Vital Signs: Vital Signs Temperature 97.9 F 04/10/20 06:00 Pulse Rate 67 04/10/20 06:00 Respiratory Rate 16 04/10/20 06:00 Blood Pressure 109/69 04/10/20 06:00 O2 Sat by Pulse Oximetry (%) 99 04/10/20 01:19 Labs: CBC, BMP 04/09/20 06:05 04/09/20 06:05 INR, PTT INR 0.94 (0.83-1.09) 04/09/20 06:05 Assessment/Plan 1. ETOH intoxication and withdrawl 2. Abnormal LFT due to #1 3. Chest pain syndrome, atypical PLAN: 1. Librium or Ativan 2. Avoid beta eleonora 3. Detox 4. Echocardiography to assess LV/RV and valvular function
--- NOTE | 2020-04-10 09:18 | PN ---
Teaching Attending Note Name of Resident: Kylie Carbone ATTENDING PHYSICIAN STATEMENT I saw and evaluated the patient. I reviewed the resident's note and discussed the case with the resident. I agree with the resident's findings and plan as documented. SUBJECTIVE: Patient wants to go to [facility] for further detox. no fever or chills OBJECTIVE: Vital Signs Temperature 97.9 F 04/10/20 06:00 Pulse Rate 67 04/10/20 06:00 Respiratory Rate 16 04/10/20 06:00 Blood Pressure 109/69 04/10/20 06:00 O2 Sat by Pulse Oximetry (%) 99 04/10/20 01:19 PE: per resident's note CBCD WBC 4.3 K/mm3 (4.0-10.0) 04/09/20 06:05 RBC 4.23 M/mm3 (4.00-5.60) 04/09/20 06:05 Hgb 13.0 GM/dL (11.7-16.9) 04/09/20 06:05 Hct 40.1 % (35.4-49) 04/09/20 06:05 MCV 94.8 fl (80-96) 04/09/20 06:05 MCHC 32.4 g/dl (32.0-35.9) 04/09/20 06:05 RDW 15.7 % (11.9-15.9) 04/09/20 06:05 Plt Count 296 K/MM3 (134-434) 04/09/20 06:05 MPV 8.9 fl (7.5-11.1) 04/09/20 06:05 CMP Sodium 142 mmol/L (136-145) 04/09/20 06:05 Potassium 4.2 mmol/L (3.5-5.1) 04/09/20 06:05 Chloride 105 mmol/L (98-107) 04/09/20 06:05 Carbon Dioxide 24 mmol/L (21-32) 04/09/20 06:05 Anion Gap 12 MMOL/L (8-16) 04/09/20 06:05 BUN 14.2 mg/dL (7-18) 04/09/20 06:05 Creatinine 0.7 mg/dL (0.55-1.3) 04/09/20 06:05 Random Glucose 79 mg/dL (74-106) 04/09/20 06:05 Calcium 9.2 mg/dL (8.5-10.1) 04/09/20 06:05 Total Bilirubin 1.2 mg/dL (0.2-1) H 04/09/20 06:05 AST 105 U/L (15-37) H 04/09/20 06:05 ALT 227 U/L (13-61) H 04/09/20 06:05 Alkaline Phosphatase 105 U/L (45-117) 04/09/20 06:05 Total Protein 7.0 g/dl (6.4-8.2) 04/09/20 06:05 Albumin 3.9 g/dl (3.4-5.0) 04/09/20 06:05 CARDIAC ENZYMES Creatine Kinase 2292 U/L (26-308) H 04/08/20 15:15 Troponin I < 0.02 ng/ml (0.00-0.05) 04/08/20 22:16 Current Medications Generic Name Dose Route Start Last Admin Trade Name Chang PRN Reason Stop Dose Admin Folic Acid 1 mg 04/10/20 10:00 Folic Acid - PO DAILY ODELL Heparin Sodium (Porcine) 5,000 unit 04/10/20 06:00 04/10/20 05:38 Heparin - SQ 5,000 unit TID ODELL Administration Lactated Ringer's 1,000 ml in 1,000 mls @ 83 mls/hr 04/09/20 23:46 04/10/20 00:30 Lactated Ringers Solution IV 04/10/20 20:33 83 mls/hr ASDIR ODELL Administration Lorazepam 0.5 mg 04/12/20 05:00 Ativan - PO 04/12/20 05:01 ONCE ONE Lorazepam 1 mg 04/09/20 23:46 Ativan - PO 04/10/20 23:59 Q4H PRN Symptoms of Withdrawal Lorazepam 0.5 mg 04/11/20 00:00 Ativan - PO 04/11/20 23:59 Q4H PRN Symptoms of Withdrawal Lorazepam 1 mg 04/10/20 05:00 04/10/20 05:38 Ativan - PO 04/10/20 23:01 1 mg 0500,1100,1700,2300 ODELL Administration Lorazepam 0.5 mg 04/11/20 05:00 Ativan - PO 04/11/20 23:01 Q6H ODELL Pneumococcal 13-Valent Conj Vacc 0.5 ml 04/10/20 01:49 Prevnar 13 Syringe - IM 04/10/20 01:50 .ONCE ONE Thiamine HCl 200 mg 04/10/20 10:00 Vitamin B1 Injection - IVPB 04/11/20 09:59 BID [facility] Home Medications Medication Instructions Recorded NK [No Known Home Medication] 04/09/20 Laboratory Tests 04/08/20 04/08/20 04/10/20 15:15 22:16 12:09 AST 145 H ALT 230 H Creatine Kinase 1522 H Troponin I < 0.02 < 0.02 CXR: Cardiomegaly EKG: Sinus Tachycardia. QTc 459. No ST-T wave abnormalities ASSESSMENT AND PLAN: Patient is a 23 y/o M with a past medical history of untreated HTN and polysubstance abuse (Crack cocaine and Alcohol) who presented to [facility] due to sudden onset chest pain around 11 am this morning. #Acute Chest : r/o ACS , chest pain most likely due to cocaine induced with cardiomegaly will get echo in am , 2 sets of trops are normal . cardio consulted and appreciated , echo ordered and reviewed. NL echo ' #Qtc repeat is 419 #Acute Rhabdomyolysis due to Cocaine induced with CK 2292-->1550 now continue IVF , and trend #Alcohol withdrawal/Polysubstance abuse:on ativan protocol with alcohol level of 60, s/p banana bag, will continue with thiamine 200mg iv bid detox consult #Acute tranaminitis due to alcohol dependency: Hepatitis serology, abdominal US, trend #HTN HTN; due to cocaine on Norvasc DVT ppx: HepSQ; h/h stable once cpk is down can go back to detox
[2020-04-10] MEDS: THIAMINE HCL 200 MG/2 ML VIAL IVPB SCH ×2 (10:37→22:41)
[2020-04-10] MEDS: FOLIC ACID 1 MG TABLET (FP) PO SCH (10:39)
--- NOTE | 2020-04-10 10:51 | CONSULT ---
Consult Detox [facility] Reason for Current Admission/Consult: Alcohol and cocaine use disorder Referred by:: Chad Camarena - History History of Present Illness: Patient is a 23 year old man with a PMH of HTN (not on medication), Alcohol abuse, Crack abuse and Tobacco use who presents to the ER with complain of chest pain since earlier today. Patient disclosed that last night at around 3:00am he drank a lot of alcohol and did a variety of drugs which then prompted him to feel "sick" in the morning. Also had 3 episodes of NBNB vomiting, muscle spasms, shaking, and "swelling throughout my whole body". Patient then stated he drank 3 more beers in the morning before going on a walk at approximately 10:00am. During said walk, the patient said he began to feel chest pain and left sided tightness along with a headache, sweating, and SOB which resulted in him "becoming anxious" and calling an ambulance. Denies fever, chills, diarrhea or dysuria. No sick contacts or recent travels. Family history is unremarkable. Patient apparently had withdrawals the night before and required a drink to stave off withdrawals. - History Source History Provided By: Medical Record Limitations to Obtaining History: No Limitations - Alcohol/Substance Use Hx Alcohol Use: Yes Hx Substance Use: Yes (cocaine) Hx Substance Use Treatment: No - Current Drug/Alcohol Use Alcohol Route: Oral Frequency: Daily Amount used: 1 six pack Age of first use: 16 Date of Last Use: 04/09/20 Cocaine Route: Inhalation Frequency: Daily Amount used: 1 bag Age of first use: 16 Date of Last Use: 04/09/20 - Past Medical History Cardio/Vascular: Yes: HTN - Past Surgical History Past Surgical History: Yes: None - Significant Medical Findings: Laboratory 04/08/20 04/08/20 04/08/20 15:15 15:15 15:15 WBC 6.7 K/mm3 K/mm3 (4.0-10.0) RBC 4.53 M/mm3 M/mm3 (4.00-5.60) Hgb 14.1 GM/dL GM/dL (11.7-16.9) Hct 42.1 % % (35.4-49) MCV 92.9 fl fl (80-96) MCH 31.2 pg pg (25.7-33.7) MCHC 33.5 g/dl g/dl (32.0-35.9) RDW 15.6 % % (11.9-15.9) Plt Count 355 K/MM3 K/MM3 (134-434) MPV 8.3 fl fl (7.5-11.1) Absolute Neuts (auto) 5.3 K/mm3 K/mm3 (1.5-8.0) Neutrophils % 79.6 % % (42.8-82.8) Lymphocytes % 13.4 % % (8-40) Monocytes % 6.3 % % (3.8-10.2) Eosinophils % 0.0 % % (0-4.5) Basophils % 0.7 % % (0-2.0) Nucleated RBC % 0 % % (0-0) PT with INR INR PTT (Actin FS) Sodium 138 mmol/L mmol/L (136-145) Potassium 3.3 mmol/L L mmol/L (3.5-5.1) Chloride 104 mmol/L mmol/L (98-107) Carbon Dioxide 25 mmol/L mmol/L (21-32) Anion Gap 9 MMOL/L MMOL/L (8-16) BUN 10.4 mg/dL mg/dL (7-18) Creatinine 0.8 mg/dL mg/dL (0.55-1.3) Est GFR (CKD-EPI)AfAm 143.90 Est GFR (CKD-EPI)NonAf 124.16 Random Glucose 89 mg/dL mg/dL (74-106) Calcium 9.5 mg/dL mg/dL (8.5-10.1) Phosphorus Magnesium Total Bilirubin 0.9 mg/dL mg/dL (0.2-1) AST 166 U/L H U/L (15-37) ALT 302 U/L H U/L (13-61) Alkaline Phosphatase 131 U/L H U/L (45-117) Creatine Kinase 2292 U/L H U/L (26-308) Creatine Kinase Index 0.2 % % (0.0-5.0) CK-MB (CK-2) 5.4 ng/mL H ng/mL (0.5-3.6) Troponin I < 0.02 ng/ml ng/ml (0.00-0.05) Total Protein 8.1 g/dl g/dl (6.4-8.2) Albumin 4.6 g/dl g/dl (3.4-5.0) Urine Color Urine Appearance Urine pH Ur Specific [place] Urine Protein Urine Glucose (UA) Urine Ketones Urine Blood Urine Nitrite Urine Bilirubin Urine Urobilinogen Ur Leukocyte Esterase Salicylates < 1.7 mg/dL L mg/dL (2.8-20) Opiates Screen Methadone Screen Acetaminophen <2.0 ug/ml ug/ml Barbiturate Screen Phencyclidine Screen Ur Amphetamines Screen MDMA (Ecstasy) Screen Benzodiazepines Screen Cocaine Screen U Marijuana (THC) Screen Alcohol, Quantitative 60.7 mg/dL H mg/dL (0.0-5.0) 04/08/20 04/08/20 04/08/20 15:20 22:07 22:07 WBC RBC Hgb Hct MCV MCH MCHC RDW Plt Count MPV Absolute Neuts (auto) Neutrophils % Lymphocytes % Monocytes % Eosinophils % Basophils % Nucleated RBC % PT with INR 10.60 SEC SEC (9.7-13.0) INR 0.90 (0.83-1.09) PTT (Actin FS) 31.0 SECONDS SECONDS (25.2-36.5) Sodium Potassium Chloride Carbon Dioxide Anion Gap BUN Creatinine Est GFR (CKD-EPI)AfAm Est GFR (CKD-EPI)NonAf Random Glucose Calcium Phosphorus Magnesium Total Bilirubin AST ALT Alkaline Phosphatase Creatine Kinase Creatine Kinase Index CK-MB (CK-2) Troponin I Total Protein Albumin Urine Color Yellow Urine Appearance Clear Urine pH 5.5 (5.0-8.0) Ur Specific [place] 1.026 (1.010-1.035) Urine Protein Negative (NEGATIVE) Urine Glucose (UA) Negative (NEGATIVE) Urine Ketones 2+ H (NEGATIVE) Urine Blood Negative (NEGATIVE) Urine Nitrite Negative (NEGATIVE) Urine Bilirubin Negative (NEGATIVE) Urine Urobilinogen 1.0 mg/dL mg/dL (0.2-1.0) Ur Leukocyte Esterase Negative (NEGATIVE) Salicylates Opiates Screen Negative ng/ml ng/ml (WQINWD=492) Methadone Screen Negative ng/ml ng/ml (GZUFWF=685) Acetaminophen Barbiturate Screen Negative ng/ml ng/ml (LPMMWH=909) Phencyclidine Screen Negative ng/ml ng/ml (CUTOFF=25) Ur Amphetamines Screen Negative ng/ml ng/ml (BASEIW=906) MDMA (Ecstasy) Screen Negative ng/ml ng/ml (WWMTEN=126) Benzodiazepines Screen Negative ng/ml ng/ml (AHXSVE=353) Cocaine Screen Positive ng/ml A* ng/ml (ZFNQKM=433) U Marijuana (THC) Screen Negative ng/ml ng/ml (CUTOFF=50) Alcohol, Quantitative 04/08/20 04/09/20 04/09/20 22:16 06:05 06:05 WBC 4.3 K/mm3 K/mm3 (4.0-10.0) RBC 4.23 M/mm3 M/mm3 (4.00-5.60) Hgb 13.0 GM/dL GM/dL (11.7-16.9) Hct 40.1 % % (35.4-49) MCV 94.8 fl fl (80-96) MCH 30.8 pg pg (25.7-33.7) MCHC 32.4 g/dl g/dl (32.0-35.9) RDW 15.7 % % (11.9-15.9) Plt Count 296 K/MM3 K/MM3 (134-434) MPV 8.9 fl fl (7.5-11.1) Absolute Neuts (auto) Neutrophils % Lymphocytes % Monocytes % Eosinophils % Basophils % Nucleated RBC % PT with INR 11.10 SEC SEC (9.7-13.0) INR 0.94 (0.83-1.09) PTT (Actin FS) 31.4 SECONDS SECONDS (25.2-36.5) Sodium Potassium Chloride Carbon Dioxide Anion Gap BUN Creatinine Est GFR (CKD-EPI)AfAm Est GFR (CKD-EPI)NonAf Random Glucose Calcium Phosphorus Magnesium Total Bilirubin AST ALT Alkaline Phosphatase Creatine Kinase Creatine Kinase Index CK-MB (CK-2) Troponin I < 0.02 ng/ml ng/ml (0.00-0.05) Total Protein Albumin Urine Color Urine Appearance Urine pH Ur Specific [place] Urine Protein Urine Glucose (UA) Urine Ketones Urine Blood Urine Nitrite Urine Bilirubin Urine Urobilinogen Ur Leukocyte Esterase Salicylates Opiates Screen Methadone Screen Acetaminophen Barbiturate Screen Phencyclidine Screen Ur Amphetamines Screen MDMA (Ecstasy) Screen Benzodiazepines Screen Cocaine Screen U Marijuana (THC) Screen Alcohol, Quantitative 04/09/20 06:05 WBC RBC Hgb Hct MCV MCH MCHC RDW Plt Count MPV Absolute Neuts (auto) Neutrophils % Lymphocytes % Monocytes % Eosinophils % Basophils % Nucleated RBC % PT with INR INR PTT (Actin FS) Sodium 142 mmol/L mmol/L (136-145) Potassium 4.2 mmol/L mmol/L (3.5-5.1) Chloride 105 mmol/L mmol/L (98-107) Carbon Dioxide 24 mmol/L mmol/L (21-32) Anion Gap 12 MMOL/L MMOL/L (8-16) BUN 14.2 mg/dL mg/dL (7-18) Creatinine 0.7 mg/dL mg/dL (0.55-1.3) Est GFR (CKD-EPI)AfAm 152.02 Est GFR (CKD-EPI)NonAf 131.16 Random Glucose 79 mg/dL mg/dL (74-106) Calcium 9.2 mg/dL mg/dL (8.5-10.1) Phosphorus 4.2 mg/dL mg/dL (2.5-4.9) Magnesium 2.4 mg/dL mg/dL (1.8-2.4) Total Bilirubin 1.2 mg/dL H mg/dL (0.2-1) AST 105 U/L H U/L (15-37) ALT 227 U/L H U/L (13-61) Alkaline Phosphatase 105 U/L U/L (45-117) Creatine Kinase Creatine Kinase Index CK-MB (CK-2) Troponin I Total Protein 7.0 g/dl g/dl (6.4-8.2) Albumin 3.9 g/dl g/dl (3.4-5.0) Urine Color Urine Appearance Urine pH Ur Specific [place] Urine Protein Urine Glucose (UA) Urine Ketones Urine Blood Urine Nitrite Urine Bilirubin Urine Urobilinogen Ur Leukocyte Esterase Salicylates Opiates Screen Methadone Screen Acetaminophen Barbiturate Screen Phencyclidine Screen Ur Amphetamines Screen MDMA (Ecstasy) Screen Benzodiazepines Screen Cocaine Screen U Marijuana (THC) Screen Alcohol, Quantitative CIWA Score - CIWA Score Nausea/Vomitin Muscle Tremors: 3 Anxiety: 3 Agitation: 3 Paroxysmal Sweats: 3 Orientation: 0-Oriented Tacttile Disturbances: 0-None Auditory Disturbances: 0-None Visual Disturbances: 0-None Headache: 0-None Present CIWA-Ar Total Score: 14 Assessment Plan - Plan Plan: 1. ETOH intoxication and withdrawal: Patient was started on Ativan protocol. Agree with this plan. Continue and once his medical work up is completed and he is medically stable, he can be transferred to [facility] for completion of detox. 2. Abnormal LFT due to alcoholism 3. Chest pain syndrome, atypical Cardiac enzymes are negative. Dr. Colin - Medication Detox Regimen/Protocol: Tara
--- NOTE | 2020-04-10 12:09 | EKG ---
Test Reason : Blood Pressure : / mmHG Vent. Rate : 111 BPM Atrial Rate : 111 BPM P-R Int : 154 ms QRS Dur : 096 ms QT Int : 338 ms P-R-T Axes : 020 027 017 degrees QTc Int : 459 ms SINUS TACHYCARDIA OTHERWISE NORMAL ECG NO PREVIOUS ECGS AVAILABLE Confirmed by Elen Escamilla ([id number]) on 04/10/2020 12:09:04 PM Referred By: Confirmed By:Elen Escamilla
[2020-04-10 13:01] LABS: ALBUMIN 4.1 g/dl (3.4-5.0); BLOOD UREA NITROGEN 7.5 mg/dL (7-18); CALCIUM 9.6 mg/dL (8.5-10.1); MAGNESIUM 2.3 mg/dL (1.8-2.4); POTASSIUM 4.1 mmol/L (3.5-5.1)
[2020-04-10 13:16] LABS: BILIRUBIN,TOTAL 1.1 mg/dL (0.2-1); CREATININE 0.7 mg/dL (0.55-1.3); PHOSPHOROUS 4.7 mg/dL (2.5-4.9); TOT PROT 7.6 g/dl (6.4-8.2)
--- NOTE | 2020-04-10 14:56 | ECHO ---
Name: GREY BASSETT Exam:Adult Echocardiogram Study Date: 04/10/2020 02:12 PM Age: 23 yrs Reason For Study: r/o acs chest pain MMode/2D Measurements & Calculations IVSd: 1.1 cm Ao root diam: 2.6 cm LVIDd: 4.2 cm LA dimension: 3.3 cm LVIDs: 3.0 cm LVPWd: 1.1 cm LVPWs: 1.4 cm EDV(Teich): 79.8 ml ESV(Teich): 33.8 ml LVOT diam: 2.0 cm LAV (MOD-bp): 37.0 ml RV S Bobby: 17.1 cm/sec Doppler Measurements & Calculations MV E max bobby: 120.9 cm/sec Ao V2 max: 136.2 cm/sec MV A max bobby: 53.3 cm/sec Ao max P.4 mmHg MV E/A: 2.3 LORA(V,D): 2.1 cm2 MV dec time: 0.24 sec LV V1 max P.2 mmHg TR max bobby: 207.7 cm/sec LV V1 max: 88.8 cm/sec TR max P.3 mmHg PA V2 max: 141.8 cm/sec Med Peak E' Bobby: 9.3 cm/sec PA max P.1 mmHg Med E/e': 13.0 Lat Peak E' Bobby: 10.4 cm/sec Lat E/e': 11.6 Procedure Study Quality: Fair. Left Ventricle The left ventricular size, thickness and function are normal. The left ventricular ejection fraction is normal. Ejection Fraction = 55-60%. Left Ventricular Filling pattern is normal for age. Right Ventricle The right ventricle is normal in size and function. Atria Normal left and right atrial size and function. Mitral Valve The mitral valve leaflets appear normal. There is no evidence of stenosis, fluttering, or prolapse. T here is no mitral regurgitation noted. Tricuspid Valve The tricuspid valve is normal. No tricuspid regurgitation. Aortic Valve The aortic valve is normal in structure and function. Pulmonic Valve The pulmonic valve is not well seen, but is grossly normal. There is no pulmonic valvular regurgitati on. Great Vessels The aortic root is normal size. Pericardium/Pleura There is no pericardial effusion. Interpretation Summary This was essentially a normal study. Elen Escamilla 04/10/2020 02:55 PM
[2020-04-10 15:00] VITALS: BMI 24.8
--- NOTE | 2020-04-10 15:13 | EKG ---
Test Reason : Blood Pressure : / mmHG Vent. Rate : 066 BPM Atrial Rate : 066 BPM P-R Int : 162 ms QRS Dur : 108 ms QT Int : 400 ms P-R-T Axes : 036 033 026 degrees QTc Int : 419 ms NORMAL SINUS RHYTHM NORMAL ECG WHEN COMPARED WITH ECG OF 08-APR-2020 14:34, VENT. RATE HAS DECREASED BY 45 BPM Confirmed by Elen Escamilla ([id number]) on 04/10/2020 3:12:36 PM Referred By: Confirmed By:Elen Escamilla
[2020-04-10] MEDS ORDERED: PNEUMOCOCCAL 23 VACCINE 0.5 ML VIAL IM ONE (18:00)
--- NOTE | 2020-04-10 18:43 | PN ---
Physical Exam: SUBJECTIVE: No overnight events. Patient seen and examined. Pt in NAD. Pt complains of pleuritic pain & pain in epigastric area when stretching to touch his toes. Complained of mild headache. OBJECTIVE: Vital Signs Period Temp Pulse Resp BP Sys/Bailey Pulse Ox Last 24 Hr 97.9 F-98.8 F 60-73 16-18 106-127/69-75 99-100 GENERAL: AAOX3, NAD HEENT: NC, NT, sclera anicteric, No ptosis. MMM LUNGS: Breath sounds equal, clear to auscultation bilaterally, no wheezes, no crackles, no accessory muscle use. HEART: Regular rate and rhythm, S1, S2 without murmur, rub or gallop. ABDOMEN: Soft, nontender, nondistended, normoactive bowel sounds, no guarding, no rebound EXTREMITIES: 2+ pulses, warm, well-perfused, no edema. NEUROLOGICAL: Normal speech, gait not observed. PSYCH: Normal mood, normal affect. SKIN: Warm, dry, normal turgor, no rashes or lesions noted CIWA: 1 (mild headache) Laboratory Results - last 24 hr 04/08/20 04/08/20 04/10/20 19:05 22:16 12:09 Sodium 138 Potassium 4.1 Chloride 101 Carbon Dioxide 29 Anion Gap 8 BUN 7.5 Creatinine 0.7 Est GFR (CKD-EPI)AfAm 152.02 Est GFR (CKD-EPI)NonAf 131.16 Random Glucose 100 Calcium 9.6 Phosphorus 4.7 Magnesium 2.3 Total Bilirubin 1.1 H AST 145 H ALT 230 H Alkaline Phosphatase 115 Creatine Kinase 1522 H Creatine Kinase Index 0.0 CK-MB (CK-2) 1.2 Total Protein 7.6 Albumin 4.1 COVID-19 (TAMIKA) Not detected Hep A IgM Ab Confirm Negative Hep Bs Antigen Negative Hep B Core IgM Ab Negative Hepatitis C Ab (EIA) <0.1 Active Medications Generic Name Dose Route Start Last Admin Trade Name Freq PRN Reason Stop Dose Admin Folic Acid 1 mg 04/10/20 10:00 04/10/20 10:39 Folic Acid - PO 1 mg DAILY ODELL Administration Heparin Sodium (Porcine) 5,000 unit 04/10/20 06:00 04/10/20 13:42 Heparin - SQ 5,000 unit TID ODELL Administration Lactated Ringer's 1,000 ml in 1,000 mls @ 83 mls/hr 04/09/20 23:46 04/10/20 00:30 Lactated Ringers Solution IV 04/10/20 20:33 83 mls/hr ASDIR ODELL Administration Lorazepam 0.5 mg 04/12/20 05:00 Ativan - PO 04/12/20 05:01 ONCE ONE Lorazepam 1 mg 04/09/20 23:46 Ativan - PO 04/10/20 23:59 Q4H PRN Symptoms of Withdrawal Lorazepam 0.5 mg 04/11/20 00:00 Ativan - PO 04/11/20 23:59 Q4H PRN Symptoms of Withdrawal Lorazepam 1 mg 04/10/20 05:00 04/10/20 18:14 Ativan - PO 04/10/20 23:01 1 mg 0500,1100,1700,2300 ODELL Administration Lorazepam 0.5 mg 04/11/20 05:00 Ativan - PO 04/11/20 23:01 Q6H ODELL Thiamine HCl 200 mg 04/10/20 10:00 04/10/20 10:37 Vitamin B1 Injection - IVPB 04/11/20 09:59 200 mg BID ODELL Administration ASSESSMENT/PLAN: 23 YO M PMH alcohol/crack cocain use p/w chest pain & non-bloody/bilious vomiting after smoking 3 bags of crack cocaine/drinking 3 beers, and then walk ing for several hours after waking up in AM. Admitted for EtOH withdrawl & to r/o ACS. CP resolved. Echo shows normal study. Given fluids for elevated CK. #Chest Pain RESOLVED -EKG Sinus Tachycardia. QTc 459. -NEGATIVE: troponin X 2 -Cardio c/s (JC) >avoid beta blockers -Echo: nml study #Rhabdomyolysis:2/2 EtOH intoxication vs extended walking -creatine kinase 2292>1522 (04/10/20), EtOH 60.7 - c/w IVF -f/u Creatine kinase #transmaminitis 2/2 Polysubstance Use - Initial: AST/ALT 166/302 Total bilirubin 0.9 -AST/ALT trended from 105/227> 145/230 (04/10/20) -RUQ Ultrasound: Liver WNL. dense echotexture. Gallbladder partially distended w/ borderline thickening of its wall. Fatty Liver Vs hepatocellular disease. -hepatitis negative #Alcohol withdrawal -CIWA: 1 -c/w ativan protocol -c/w IV thiamine & PO folate - Addiction medicine c/s pending #FEN -Lactate Ringer's 83 cc's -trend bmp -sodium-controlled diet #DVT ppx: - SQH # Dispo: -Med-Surg Visit type - Emergency Visit Emergency Visit: Yes ED Registration Date: 04/08/20 Care time: The patient presented to the Emergency Department on the above date and was hospitalized for further evaluation of their emergent condition. - New Patient This patient is new to me today: No - Critical Care Critical Care patient: No ATTENDING PHYSICIAN STATEMENT I saw and evaluated the patient. I reviewed the resident's note and discussed the case with the resident. I agree with the resident's findings and plan as documented. SUBJECTIVE: OBJECTIVE: ASSESSMENT AND PLAN:
[2020-04-10] MEDS: SODIUM CHLORIDE 1,000 ML IV SCH (19:43)
[2020-04-10] MEDS ORDERED: PT OWN MED DRAWER 7, Y5N ONE (22:36)
[2020-04-11] MEDS ORDERED: LORazepam 0.5 MG TABLET PO PRN ×2
[2020-04-11] MEDS: SODIUM CHLORIDE 1,000 ML IV SCH ×4 (03:02→23:31)
[2020-04-11] MEDS ORDERED: LORazepam 0.5 MG TABLET PO SCH (05:00)
[2020-04-11] MEDS: HEPARIN NA (PORCINE) 5,000 UNITS/ML 1ML VIAL SQ SCH ×3 (05:28→22:17)
[2020-04-11] MEDS: LORazepam 0.5 MG TABLET PO SCH ×4 (05:29→22:16)
[2020-04-11 08:13] LABS: ALBUMIN 3.7 g/dl (3.4-5.0); ALK PHOS 100 U/L (45-117); ANION GAP 7 MMOL/L (8-16); BLOOD UREA NITROGEN 9.7 mg/dL (7-18); CALCIUM 8.6 mg/dL (8.5-10.1); CHLORIDE 104 mmol/L (98-107); CO2 28 mmol/L (21-32); CREATININE 0.8 mg/dL (0.55-1.3); GLUCOSE,RANDOM 87 mg/dL (74-106); MAGNESIUM 2.2 mg/dL (1.8-2.4); PHOSPHOROUS 4.7 mg/dL (2.5-4.9); POTASSIUM 3.7 mmol/L (3.5-5.1); SGOT/AST 143 U/L (15-37); SGPT/ALT 224 U/L (13-61); SODIUM 139 mmol/L (136-145); TOT PROT 6.6 g/dl (6.4-8.2)
[2020-04-11] MEDS: FOLIC ACID 1 MG TABLET (FP) PO SCH (09:52)
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
--- NOTE | 2020-04-11 15:29 | PN ---
Teaching Attending Note Name of Resident: Alfonzo Mina ATTENDING PHYSICIAN STATEMENT I saw and evaluated the patient. I reviewed the resident's note and discussed the case with the resident. I agree with the resident's findings and plan as documented. SUBJECTIVE: no fever or chills. no pain , no SOB OBJECTIVE: NAD CV: RRR. Lungs: CTAB Abd: soft, NT, ND , nl BS. Ext : No edema or erythema ,. No tremor ASSESSMENT AND PLAN: 23 y/o man with h/o ETOH and cocaine abuse who presented with Cp and was found to have Rhabdo 1- ETOH withdrawal. cont detox at [facility] .cont thiamine and folate 2- Rhabdomyolysis : CPK < 1000. renal function nl. cont pohyration 3- CP: due to cocaine use . resolved. echo and EKG reviewed. 4- TSH and lipids are pending. to be followed either at [facility] or at PCP 's office 5- Transaminitis : due to alcohol buse. nl bili and INR. trended down . f/u as out pt transfer to [facility] to finish detox and ? rehab
[2020-04-11 15:59] LABS: CHOLESTEROL 220 mg/dL (50-200); HDL CHOLESTEROL 75 mg/dL (40-60); LDL CHOLESTEROL (ONLY SJRH) 133 mg/dL (5-100); TRIGLYCERIDES 87 mg/dL (0-150)
--- NOTE | 2020-04-11 21:49 | PN ---
Physical Exam: SUBJECTIVE: No overnight evens. Patient seen and examined. NAD. C/o pain when pain in epigastric area when stretching to touch his toes. ROS negative except as above. OBJECTIVE: Vital Signs Period Temp Pulse Resp BP Sys/Bailey Pulse Ox Last 24 Hr 97.6 F-99.2 F 58-77 18-20 108-132/54-80 97 GENERAL: AAOX3, NAD HEENT: NC, NT, sclera anicteric, No ptosis. MMM LUNGS: Breath sounds equal, clear to auscultation bilaterally, no wheezes, no crackles, no accessory muscle use. HEART: Regular rate and rhythm, S1, S2 without murmur, rub or gallop. ABDOMEN: Soft, nontender, nondistended, normoactive bowel sounds, no guarding, no rebound EXTREMITIES: 2+ pulses, warm, well-perfused, no edema. NEUROLOGICAL: Normal speech, gait not observed. PSYCH: Normal mood, normal affect. SKIN: Warm, dry, normal turgor, no rashes or lesions noted CIWA: 1 (fine tremors) Laboratory Results - last 24 hr 04/11/20 06:43 Sodium 139 Potassium 3.7 Chloride 104 Carbon Dioxide 28 Anion Gap 7 L BUN 9.7 Creatinine 0.8 Est GFR (CKD-EPI)AfAm 143.90 Est GFR (CKD-EPI)NonAf 124.16 Random Glucose 87 Calcium 8.6 Phosphorus 4.7 Magnesium 2.2 Total Bilirubin 1.0 AST 143 H ALT 224 H Alkaline Phosphatase 100 Creatine Kinase 999 H Creatine Kinase Index No Result Required. CK-MB (CK-2) < 1.0 Total Protein 6.6 Albumin 3.7 Triglycerides 87 Cholesterol 220 H Total LDL Cholesterol 133 H HDL Cholesterol 75 H TSH 3.63 Active Medications Generic Name Dose Route Start Last Admin Trade Name Freq PRN Reason Stop Dose Admin Folic Acid 1 mg 04/10/20 10:00 04/11/20 09:52 Folic Acid - PO 1 mg DAILY ODELL Administration Heparin Sodium (Porcine) 5,000 unit 04/10/20 06:00 04/11/20 14:08 Heparin - SQ 5,000 unit TID ODELL Administration Sodium Chloride 1,000 mls @ 150 mls/hr 04/10/20 18:45 04/11/20 17:26 Normal Saline - IV 150 mls/hr ASDIR ODELL Administration Lorazepam 0.5 mg 04/12/20 05:00 Ativan - PO 04/12/20 05:01 ONCE ONE Lorazepam 0.5 mg 04/11/20 00:00 Ativan - PO 04/11/20 23:59 Q4H PRN Symptoms of Withdrawal Lorazepam 0.5 mg 04/11/20 05:00 04/11/20 17:26 Ativan - PO 04/11/20 23:01 0.5 mg Q6H ODELL Administration TSH 3.6 ASSESSMENT/PLAN: 23 YO M PMH alcohol/crack cocain use p/w chest pain & non-bloody/bilious vomiting after smoking 3 bags of crack cocaine/drinking 3 beers, and then walking for several hours after waking up in AM. Admitted for EtOH withdrawl & to r/o ACS. CP resolved. Echo shows normal study. Given fluids for elevated CK. #Chest Pain RESOLVED -due to cocaine -EKG Sinus Tachycardia. QTc 459. -NEGATIVE: troponin X 2 -Cardio c/s (JC) >avoid beta blockers -Echo: nml study #Rhabdomyolysis:2/2 EtOH intoxication vs extended walking -creatine kinase downtrended 2292>1522 (04/10/20)> 999 (04/11/20) - c/w IVF #transmaminitis 2/2 Polysubstance Use - Initial: AST/ALT 166/302 Total bilirubin 0.9 -AST/ALT trended from 105/227> 145/230 (04/10/20)>143/224 (04/11), but still elevated. -RUQ Ultrasound: Liver WNL. dense echotexture. Gallbladder partially distended w/ borderline thickening of its wall. Fatty Liver Vs hepatocellular disease. -Will instruct pt to f/u outpatient for elevated Liver enzymes #Alcohol withdrawal -CIWA: 1 (fine tremors) -c/w ativan protocol. last dose tomorrow -c/w IV thiamine & PO folate #Elevated Lipids -cholesterol & total LDL cholesterol= 220/130 -will instruct pt to make lifestyle modifications #FEN -NS -trend bmp -sodium-controlled diet #DVT ppx: - SQH # Dispo: -Med-Surg -Original plan was for [facility], but pt cannot afford. Will help pt find temporary residence/senior care. Visit type - Emergency Visit Emergency Visit: Yes ED Registration Date: 04/08/20 Care time: The patient presented to the Emergency Department on the above date and was hospitalized for further evaluation of their emergent condition. - New Patient This patient is new to me today: No - Critical Care Critical Care patient: No ATTENDING PHYSICIAN STATEMENT I saw and evaluated the patient. I reviewed the resident's note and discussed the case with the resident. I agree with the resident's findings and plan as documented. SUBJECTIVE: OBJECTIVE: ASSESSMENT AND PLAN:
[2020-04-12] MEDS ORDERED: LORazepam 0.5 MG TABLET PO ONE ×2 (05:00)
[2020-04-12] MEDS: HEPARIN NA (PORCINE) 5,000 UNITS/ML 1ML VIAL SQ SCH ×2 (05:47→15:12)
[2020-04-12] MEDS: SODIUM CHLORIDE 1,000 ML IV SCH (06:32)
[2020-04-12 08:49] LABS: BASO % 0.7 % (0-2.0); EOS % 1.9 % (0-4.5); HEMATOCRIT 40.4 % (35.4-49); HEMOGLOBIN 13.1 GM/dL (11.7-16.9); LYMPH % 27.6 % (8-40); MCH 30.7 pg (25.7-33.7); MCHC 32.5 g/dl (32.0-35.9); MEAN CELL VOLUME 94.4 fl (80-96); MONO % 5.2 % (3.8-10.2); NEUT % 64.6 % (42.8-82.8); PLATELET COUNT 267 K/MM3 (134-434); RBC 4.28 M/mm3 (4.00-5.60); RDW 14.9 % (11.9-15.9); WHITE BLOOD COUNT 4.7 K/mm3 (4.0-10.0)
[2020-04-12 09:15] LABS: ALBUMIN 3.6 g/dl (3.4-5.0); BILIRUBIN,TOTAL 0.8 mg/dL (0.2-1); BLOOD UREA NITROGEN 6.7 mg/dL (7-18); CALCIUM 8.8 mg/dL (8.5-10.1); CREATININE 0.8 mg/dL (0.55-1.3); MAGNESIUM 2.1 mg/dL (1.8-2.4); PHOSPHOROUS 4.4 mg/dL (2.5-4.9); POTASSIUM 3.9 mmol/L (3.5-5.1); TOT PROT 6.6 g/dl (6.4-8.2)
[2020-04-12] MEDS: FOLIC ACID 1 MG TABLET (FP) PO SCH (10:14)
[2020-04-12 12:49] VITALS: BP 100/55; PULSE 64; TEMP 98
--- NOTE | 2020-04-12 15:18 | PN ---
Teaching Attending Note Name of Resident: Duane Rizo ATTENDING PHYSICIAN STATEMENT I saw and evaluated the patient. I reviewed the resident's note and discussed the case with the resident. I agree with the resident's findings and plan as documented. SUBJECTIVE: No fever or chills. has no pain in abd omen . has rash in axillary area b/l. OBJECTIVE: NAD. CV: RRR. Lungs: CTAB Abd: soft, NT, ND, nl BS. Ext: No edema or erythema. No tremor. Axillary areas with pusular rash . ASSESSMENT AND PLAN: 23 y/o man with h/o ETOH and cocaine abuse who presented with Cp and was found to have Rhabdo 1- ETOH withdrawal. resolved. finished detox. cont thiamine and folate 2- Rhabdomyolysis : cont po hyration 3- CP: due to cocaine use . resolved. 4- TSH and lipids reviewed life style changes and exercise 5- Transaminitis : due to alcohol buse. . f/u as out pt 6- foliculitis in axillary area. give clinda x 5 days . advised to avoid shaving the area. [facility]. out pt f/u
--- NOTE | 2020-04-12 21:23 | DS ---
Physical Exam: SUBJECTIVE: No overnight events. Patient seen and examined. NAD. Pt complained of rash in axilla OBJECTIVE: Vital Signs Period Temp Pulse Resp BP Sys/Bailey Pulse Ox Last 24 Hr 98 F-98.6 F 54-64 18-20 100-133/55-79 97 PHYSICAL EXAM GENERAL: AAOX3, NAD HEENT: NC, NT, sclera anicteric, No ptosis. MMM LUNGS: Breath sounds equal, clear to auscultation bilaterally, no wheezes, no crackles, no accessory muscle use. HEART: Regular rate and rhythm, S1, S2 without murmur, rub or gallop. ABDOMEN: Soft, nontender, nondistended, normoactive bowel sounds, no guarding, no rebound BACK: folliculitis in b/l axilla EXTREMITIES: 2+ pulses, warm, well-perfused, no edema. NEUROLOGICAL: Normal speech, gait not observed. PSYCH: Normal mood, normal affect. SKIN: Warm, dry, normal turgor, no rashes or lesions noted LABS Laboratory Results - last 24 hr 04/12/20 04/12/20 08:15 08:15 WBC 4.7 RBC 4.28 Hgb 13.1 Hct 40.4 MCV 94.4 MCH 30.7 MCHC 32.5 RDW 14.9 Plt Count 267 MPV 9.0 Absolute Neuts (auto) 3.0 Neutrophils % 64.6 Lymphocytes % 27.6 D Monocytes % 5.2 Eosinophils % 1.9 D Basophils % 0.7 Nucleated RBC % 0 Sodium 140 Potassium 3.9 Chloride 106 Carbon Dioxide 29 Anion Gap 5 L BUN 6.7 L Creatinine 0.8 Est GFR (CKD-EPI)AfAm 143.90 Est GFR (CKD-EPI)NonAf 124.16 Random Glucose 86 Calcium 8.8 Phosphorus 4.4 Magnesium 2.1 Total Bilirubin 0.8 AST 211 H ALT 299 H Alkaline Phosphatase 100 Total Protein 6.6 Albumin 3.6 HOSPITAL COURSE: 23 YO M PMH alcohol/crack cocaine use p/w chest pain & non-bloody/bilious vomiting after smoking 3 bags of crack cocaine/drinking 3 beers, and then walking for several hours after waking up in the AM. Admitted for EtOH withdrawl & to r/o ACS. In the ED, his urine tox was cocaine +, had alcohol level of 60 and AST/ALT/alk phos of 166/302/131. EKG showed Sinus Tachycardia & QTc 459. Troponins were negative X 2. Echo was WNL. Beta blockers were avoided due to pts cocaine use hx. Pts chest pain resolved and was likely due to cocaine use. Initially CIWA was 11 for pt. He was given Ativan 1 mg and Librium 50 mg in ED. Pt was placed on Ativan detox protocol due his transaminitis. Thiamine & folate were also administered. He completed the Ativan protocol, and his alcohol withdrawal symptoms had resolved. Labs showed elevated creatine kinase. Pts Rhabdomyolysis 2/2 EtOH intoxication vs extended walking was treated with IV NS. It downtrended from 2292 to 1522 to 999. AST/ALT trended from 166/302 to 143/224. RUQ Ultrasound: Liver WNL. dense echotexture. Gallbladder partially distended w/ borderline thickening of its wall. Fatty Liver Vs hepatocellular disease. Pt was instructed to follow-up outpatient for elevated liver enzymes. Because cholesterol & total LDL cholesterol= 220/130, pt was instructed to make lifestyle modifications. Pt was given clindamycin for folliculitis. Pt improved and is stable for discharge Date of Admission:04/08/20 EKG: Sinus Tachycardia & QTc 459. Echo: essentially a normal study RUQ Ultrasound: Liver WNL. dense echotexture. Gallbladder partially distended w/ borderline thickening of its wall. Fatty Liver Vs hepatocellular disease. Date of Discharge: 04/12/20 Minutes to complete discharge: 41 Discharge Summary Problems reviewed: Yes Reason For Visit: CHEST PAIN/ALCOHOL WITHDRAWAL SYNDROME Condition: Improved - Instructions Diet, Activity, Other Instructions: You came into the hospital for chest pain after walking for several hours. You also had non-bloody vomiting, muscle spasms, & shaking. Your EKG showed an increase heart rate, but your lab work was not suggestive of any heart injury. You were evaluated by a unit tender. Imaging of your heart was normal. Your chest pain & shaking resolved spontaneously. You had signs of alcohol withdrawal were given ativan in tapering doses. You were also given thiamine & folate. Your liver enzymes were elevated. Images of your abdomen showed a fatty liver. 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 Your labs showed increased muscle enzymes likely due to cocaine use and muscle breakdown. You were treated with fluids. You had elevated cholesterol. MEDICATIONS - Folic Acid, 1mg daily - Thiamine, 100mg daily - Clindamycin 450mg, three times daily for the next 5days. Please take all your pills as scheduled, even if you have no symptoms FOLLOW-UP WITH THE PHYSICIANS BELOW: - Primary Care Physician: to discuss your recent hospitalization. Recheck your labwork(CMP, CK) in 1-2weeks. Recheck your cholesterol in 3-6months. --note: if you do not have a primary care physician, please visit us at the [facility] - Supervisor Order Takers(Kirk): to discuss your fatty liver - You can also call [phone] and ask to be transferred to [facility] ( they accept patients with no insurance ) ADDITIONAL INSTRUCTIONS: - avoid substances such as alcohol and illicit drugs - please avoid fatty meals and try to lose 5lbs of weight - continue to drink plenty of fluids, at least 4-6 glasses of water daily Please seek immediate medical evaluation if you experience: - severe confusion - seizures - unresolving chest pain. Referrals: [facility] [place] [Provider Group] Jeffery rBadley DO [Staff Physician] - Disposition: HOME - Home Medications Comprehensive Discharge Medication List: Ambulatory Orders Thiamine Mononitrate [Vitamin B-1] 100 mg PO DAILY 30 Days #30 tablet 04/11/20 Clindamycin HCl [Cleocin HCl] 450 mg PO TID 5 Days #15 capsule 04/12/20 Folic Acid - 1 mg PO DAILY #30 tablet 04/12/20 This patient is new to me today: No Emergency Visit: Yes ED Registration Date: 04/08/20 Care time: The patient presented to the Emergency Department on the above date and was hospitalized for further evaluation of their emergent condition. Critical Care patient: No - Discharge Referral Referred to [facility] No ATTENDING PHYSICIAN STATEMENT I saw and evaluated the patient. I reviewed the resident's note and discussed the case with the resident. I agree with the resident's findings and plan as documented. SUBJECTIVE: OBJECTIVE: ASSESSMENT AND PLAN:
== END 2020-04-12 15:33 | disposition home or self-care (01) | DRG 816 ==
LOC: EDBD → JER 14:25 → UNDOADMOB 18:47 → JERBED 18:47 → OBSVTOIN 20:41 → JERBED 20:41 → INTOOBSV 20:41 → J5S 04-09 23:31
PROVIDERS: ADMIT Internal Medicine; ATTEND Internal Medicine
DX: T40.5X1A Poisoning by cocaine, accidental (unintentional), initial encounter (principal); F14.10 Cocaine abuse, uncomplicated; F10.239 Alcohol dependence with withdrawal, unspecified; R07.9 Chest pain, unspecified; R74.0 Nonspecific elevation of levels of transaminase and lactic acid dehydrogenase [LDH]; R07.89 Other chest pain; R00.0 Tachycardia, unspecified; F10.229 Alcohol dependence with intoxication, unspecified; I51.7 Cardiomegaly; I10 Essential (primary) hypertension; M62.82 Rhabdomyolysis; L66.4 Folliculitis ulerythematosa reticulata; K29.20 Alcoholic gastritis without bleeding; K76.0 Fatty (change of) liver, not elsewhere classified; F41.9 Anxiety disorder, unspecified; E87.6 Hypokalemia
CPT/HCPCS: 36415; 71045-TC-FY; 76700-TC; 80053; 80061; 80074; 80307; 81003; 82550; 82553; 83721; 83735; 84100; 84443; 84484; 85025; 85027; 85610; 85730; 90732; 93005; 93010; 93306-TC; 99285-25; G0009; G0378; J1644; U0003

== ENCOUNTER 2021-07-30 10:12 | Emergency (ER) | payer OTHER ==
[2021-07-30 10:41] VITALS: BP 122/79; PULSE 62; TEMP 98.2; BMI 23.1
[2021-07-30] MEDS ORDERED: IBUPROFEN 400 MG TABLET (FP) PO ONE ×2 (14:49→15:03)
== END 2021-07-30 15:31 | disposition home or self-care (01) ==
LOC: JER 10:12
DX: R23.3 Spontaneous ecchymoses (principal); M25.562 Pain in left knee
CPT/HCPCS: 93971-TC; 99285-25

== ENCOUNTER 2021-08-25 10:05 | Emergency (ER) | payer OTHER ==
[2021-08-25 10:20] VITALS: BMI 23.5
[2021-08-25] MEDS ORDERED: ONDANSETRON 4 MG/2 ML VIAL IVPUSH ONE (10:47)
[2021-08-25] MEDS ORDERED: SODIUM CHLORIDE 1,000 ML IV STA (10:47)
[2021-08-25] MEDS ORDERED: KETOROLAC TROMETHAMINE 30 MG/1 ML VIAL IVPUSH ONE (10:47)
[2021-08-25] MEDS ORDERED: KETOROLAC TROMETHAMINE 30 MG/1 ML VIAL ONE (11:02)
[2021-08-25] MEDS ORDERED: ONDANSETRON 4 MG/2 ML VIAL ONE (11:03)
[2021-08-25 11:40] LABS: BASO % 0.2 % (0-2.0); EOS % 0.1 % (0-4.5); HEMATOCRIT 39.8 % (35.4-49); HEMOGLOBIN 13.7 GM/dL (11.7-16.9); LYMPH % 7.8 % (8-40); MCH 31.2 pg (25.7-33.7); MCHC 34.3 g/dl (32.0-35.9); MEAN CELL VOLUME 91.1 fl (80-96); MONO % 6.1 % (3.8-10.2); NEUT % 85.8 % (42.8-82.8); PLATELET COUNT 249 10^3/uL (134-434); RBC 4.37 M/mm3 (4.00-5.60); RDW 14.6 % (11.9-15.9); WHITE BLOOD COUNT 8.7 K/mm3 (4.0-10.0)
[2021-08-25 11:42] LABS: PH,URINE 5.5 (5.0-8.0); URINE APPEARANCE CLEAR; URINE BILIRUBIN NEGATIVE (NEGATIVE); URINE COLOR YELLOW; URINE GLUCOSE (UA) NEGATIVE (NEGATIVE); URINE KETONE NEGATIVE (NEGATIVE); URINE LEUK ESTERASE NEGATIVE (NEGATIVE); URINE NITRITE NEGATIVE (NEGATIVE); URINE PROTEIN NEGATIVE (NEGATIVE); URINE UROBILINOGEN 0.2 mg/dL (0.2-1.0)
[2021-08-25 11:58] LABS: COCAINE, UR NEGATIVE (NEGATIVE); URINE BARBITURATES NEGATIVE (NEGATIVE)
[2021-08-25 11:59] LABS: ALBUMIN 4.2 g/dl (3.4-5.0)
[2021-08-25 11:59] LABS: METHADONE, UR NEGATIVE (NEGATIVE); PHENCYCLIDINE,URINE NEGATIVE (NEGATIVE)
[2021-08-25 12:02] LABS: CREATININE 0.6 mg/dL (0.55-1.3)
[2021-08-25 12:03] LABS: BILIRUBIN,TOTAL 0.7 mg/dL (0.2-1); TOT PROT 7.5 g/dl (6.4-8.2)
[2021-08-25 12:16] LABS: OPIATES, URI NEGATIVE (NEGATIVE); URINE AMPHETAMINES NEGATIVE (NEGATIVE); URINE BENZODIAZEPINES NEGATIVE (NEGATIVE)
[2021-08-25] MEDS ORDERED: chlordiazePOXIDE HCL 25 MG CAPSULE PO ONE (13:30)
[2021-08-25] MEDS ORDERED: LORazepam 1 MG TABLET PO ONE (13:38)
[2021-08-25] MEDS ORDERED: LORazepam 1 MG TABLET ONE (13:38)
[2021-08-25 14:09] VITALS: BP 110/68; PULSE 95; TEMP 98.5
== END 2021-08-25 13:45 | disposition home or self-care (01) ==
LOC: JER 10:05
PROC: 3E0333Z Introduction of Anti-inflammatory into Peripheral Vein, Percutaneous Approach (ICD-10-PCS; principal; 2021-08-25)
PROC: 3E033GC Introduction of Other Therapeutic Substance into Peripheral Vein, Percutaneous Approach (ICD-10-PCS; 2021-08-25)
PROC: 3E0337Z Introduction of Electrolytic and Water Balance Substance into Peripheral Vein, Percutaneous Approach (ICD-10-PCS; 2021-08-25)
DX: R10.11 Right upper quadrant pain (principal); F10.10 Alcohol abuse, uncomplicated; R11.2 Nausea with vomiting, unspecified
CPT/HCPCS: 36415; 76705-TC; 80053; 80307; 81003; 82550; 83690; 85025; 99284-25